=== PATIENT | male | born 1945 | race Caucasian/White ===

== ENCOUNTER → 2018-03-29 09:16 | Outpatient (CLI) | payer BC, SELFPAY ==
[2018-03-29 12:43] LABS: Absolute Lymphocyte Count 1.74 X10^3/ul (0.83-4.51); Absolute Neutrophil Count 5.4 X10^3/uL (2.0-7.7); Basophil# 0.04 X10^3/uL; Basophil% 0.5 % (0-1); Eosinophil# 0.31 X10^3/uL; Eosinophils% 3.8 % (0-5); Hematocrit 42.3 % (40-54); Hemoglobin 14.3 g/dl (13.0-16.5); Lymphocyte # 1.74 X10^3/ul (4.0); Lymphocyte % 21.4 % (19-41); Mean Corp Hgb Conc 33.8 g/gl (32-36); Mean Corpuscular Hgb 26.8 pg (27.0-32.0); Mean Corpuscular Volume 79.2 fL (80-94); Mean Platelet Vol. 12.5 fl (6.2-12.0); Monocyte# 0.64 X10^3/uL; Monocyte% 7.9 % (0-10); Neutrophil # 5.36 X10^3/uL (2.7-7.7); Neutrophil % 65.9 % (47-70); Platelet Count 157 K/mm3 (150-450); RBC Distribution Width SD 43.5 fl (35.1-43.9); Red Blood Count 5.34 M/mm3 (4.6-6.2); White Blood Count 8.1 K/mm3 (4.4-11.0)
[2018-03-29 12:49] LABS: POSITIVE COUNT NO; POSITIVE DIFFERENTIAL NO; POSITIVE MORPHOLOGY NO
[2018-03-29 13:04] LABS: ALB/GLOB Ratio 1.1 RATIO (0.9-2.4); AST(SGOT) 27 U/L (15-37); Alanine Aminotransfer ALT/SGPT 42 U/L (16-61); Albumin, Serum 4.1 g/dL (3.2-5.0); Alkaline Phosphatase 89 U/L (45-117); Anion Gap 7 (5-15); BUN 23 mg/dL (7-18); BUN/Creat Ratio 19.8 RATIO (10-20); Chloride 106 mmol/L (98-107); Creatinine, Serum 1.16 mg/dL (0.70-1.30); EST Glomerular Filtration Rate 66 mL/min (>60); Est Glom Filt Rate - Afr Amer 80 mL/min (>60); Globulin 3.9 g/dL (2.2-4.2); Glucose 100 mg/dL (74-106); Potassium 4.2 mmol/L (3.5-5.1); Sodium Level 135 mmol/L (136-145)
[2018-03-30 09:55] LABS: Vitamin D,25 Hydroxy 49.7 ng/mL (29.95-100.01)
== END ==
PROVIDERS: Family Provider Family Medicine Geriatric Medicine; PCP Family Medicine Geriatric Medicine; Visit Provider Family Medicine Geriatric Medicine
DX: I10 Essential (primary) hypertension (principal); E23.6 Other disorders of pituitary gland; E55.9 Vitamin D deficiency, unspecified
CPT/HCPCS: 36415; 80053; 82306; 84403; 84443; 85025

== ENCOUNTER → 2018-04-04 11:16 | Outpatient (CLI) | payer BC, SELFPAY ==
[2018-04-04 13:31] LABS: T3 Uptake 34 % (33-40); T4 Free Direct 0.84 ng/dL (0.76-1.46)
== END ==
PROVIDERS: Family Provider Family Medicine Geriatric Medicine; PCP Family Medicine Geriatric Medicine; Visit Provider Family Medicine Geriatric Medicine
DX: E03.9 Hypothyroidism, unspecified (principal)
CPT/HCPCS: 36415; 84439; 84479

== ENCOUNTER → 2018-09-27 09:21 | Outpatient (CLI) | payer BC, SELFPAY ==
[2018-09-27 12:43] LABS: Absolute Neutrophil Count 5.5 X10^3/uL (2.0-7.7); Basophil# 0.05 X10^3/uL; Basophil% 0.6 % (0-1); Eosinophil# 0.35 X10^3/uL; Eosinophils% 4.3 % (0-5); Hematocrit 44.3 % (40-54); Hemoglobin 14.8 g/dl (13.0-16.5); Lymphocyte % 20.7 % (19-41); Mean Corp Hgb Conc 33.4 g/gl (32-36); Mean Corpuscular Hgb 27.1 pg (27.0-32.0); Mean Corpuscular Volume 81.1 fL (80-94); Mean Platelet Vol. 11.8 fl (6.2-12.0); Monocyte# 0.57 X10^3/uL; Monocyte% 6.9 % (0-10); Neutrophil # 5.51 X10^3/uL (2.7-7.7); Platelet Count 171 K/mm3 (150-450); RBC Distribution Width CV 15.2 % (11.6-14.6); RBC Distribution Width SD 45.1 fl (35.1-43.9); Red Blood Count 5.46 M/mm3 (4.6-6.2); White Blood Count 8.2 K/mm3 (4.4-11.0)
[2018-09-27 12:46] LABS: POSITIVE COUNT NO; POSITIVE DIFFERENTIAL NO; POSITIVE MORPHOLOGY NO
[2018-09-27 13:07] LABS: AST(SGOT) 30 U/L (15-37); Alanine Aminotransfer ALT/SGPT 42 U/L (16-61); Alkaline Phosphatase 87 U/L (45-117); Anion Gap 9 (5-15); BUN 23 mg/dL (7-18); BUN/Creat Ratio 19.8 RATIO (10-20); Calcium,Total 8.8 mg/dL (8.5-10.1); Chloride 106 mmol/L (98-107); Creatinine, Serum 1.16 mg/dL (0.70-1.30); EST Glomerular Filtration Rate 66 mL/min (>60); Est Glom Filt Rate - Afr Amer 80 mL/min (>60); Globulin 4.1 g/dL (2.2-4.2); Glucose 96 mg/dL (74-106); Potassium 4.5 mmol/L (3.5-5.1); Protein, Total 8.1 g/dL (6.4-8.2); Sodium Level 138 mmol/L (136-145); Thyroid Stim Hormone (TSH) 0.45 uIU/mL (0.358-3.74)
[2018-09-27 13:08] LABS: Vitamin D,25 Hydroxy 39.7 ng/mL (29.95-100.01)
== END ==
PROVIDERS: Family Provider Family Medicine Geriatric Medicine; PCP Family Medicine Geriatric Medicine; Visit Provider Family Medicine Geriatric Medicine
DX: I10 Essential (primary) hypertension (principal); E23.6 Other disorders of pituitary gland; E55.9 Vitamin D deficiency, unspecified
CPT/HCPCS: 36415; 80053; 82306; 84403; 84443; 85025

== ENCOUNTER → 2019-03-28 09:14 | Outpatient (CLI) | payer BC, SELFPAY ==
[2019-03-28 12:19] LABS: Absolute Lymphocyte Count 1.34 X10^3/ul (0.83-4.51); Absolute Neutrophil Count 4.6 X10^3/uL (2.0-7.7); Basophil# 0.02 X10^3/uL; Basophil% 0.3 % (0-1); Hematocrit 40.7 % (40-54); Hemoglobin 13.8 g/dl (13.0-16.5); Lymphocyte # 1.34 X10^3/ul (4.0); Lymphocyte % 20.1 % (19-41); Mean Corp Hgb Conc 33.9 g/gl (32-36); Mean Corpuscular Hgb 26.1 pg (27.0-32.0); Mean Corpuscular Volume 77.1 fL (80-94); Mean Platelet Vol. 11.2 fl (6.2-12.0); Monocyte# 0.51 X10^3/uL; Monocyte% 7.6 % (0-10); Neutrophil # 4.56 X10^3/uL (2.7-7.7); Neutrophil % 68.4 % (47-70); Platelet Count 145 K/mm3 (150-450); RBC Distribution Width CV 15.8 % (11.6-14.6); RBC Distribution Width SD 43.7 fl (35.1-43.9); Red Blood Count 5.28 M/mm3 (4.6-6.2); White Blood Count 6.7 K/mm3 (4.4-11.0)
[2019-03-28 12:32] LABS: POSITIVE COUNT NO; POSITIVE DIFFERENTIAL NO; POSITIVE MORPHOLOGY NO
[2019-03-28 12:35] LABS: Vitamin D,25 Hydroxy 54.4 ng/mL (29.95-100.01)
[2019-03-28 12:42] LABS: ALB/GLOB Ratio 0.9 RATIO (0.9-2.4); AST(SGOT) 30 U/L (15-37); Alanine Aminotransfer ALT/SGPT 43 U/L (16-61); Albumin, Serum 3.8 g/dL (3.2-5.0); Alkaline Phosphatase 97 U/L (45-117); Anion Gap 10 (5-15); BUN 25 mg/dL (7-18); BUN/Creat Ratio 21.2 RATIO (10-20); Calcium,Total 9.2 mg/dL (8.5-10.1); Chloride 105 mmol/L (98-107); Creatinine, Serum 1.18 mg/dL (0.70-1.30); EST Glomerular Filtration Rate 64 mL/min (>60); Est Glom Filt Rate - Afr Amer 78 mL/min (>60); Globulin 4.3 g/dL (2.2-4.2); Glucose 98 mg/dL (74-106); Potassium 4.1 mmol/L (3.5-5.1); Protein, Total 8.1 g/dL (6.4-8.2); Sodium Level 138 mmol/L (136-145); Thyroid Stim Hormone (TSH) 0.41 uIU/mL (0.358-3.74)
== END ==
PROVIDERS: Family Provider Family Medicine Geriatric Medicine; PCP Family Medicine Geriatric Medicine; Visit Provider Family Medicine Geriatric Medicine
DX: I10 Essential (primary) hypertension (principal); E23.6 Other disorders of pituitary gland; E55.9 Vitamin D deficiency, unspecified
CPT/HCPCS: 36415; 80053; 82306; 84403; 84443; 85025

== ENCOUNTER → 2019-10-03 12:00 | Outpatient (CLI) | payer BC, SELFPAY ==
[2019-10-03 12:36] LABS: Absolute Lymphocyte Count 1.73 X10^3/uL (0.83-4.51); Absolute Neutrophil Count 5.4 X10^3/uL (2.0-7.7); Basophil# 0.05 X10^3/uL; Basophil% 0.6 % (0-1); Eosinophil# 0.24 X10^3/uL; Hemoglobin 14.3 g/dL (13.0-16.5); Lymphocyte # 1.73 X10^3/ul (4.0); Lymphocyte % 21.7 % (19-41); Mean Corp Hgb Conc 33.3 g/dL (32-36); Mean Corpuscular Hgb 27.1 pg (27.0-32.0); Mean Corpuscular Volume 81.4 fL (80-94); Mean Platelet Vol. 11.6 fl (6.2-12.0); Monocyte% 6.3 % (0-10); NRBC Flagged by Analyzer 0 % (0-5); Neutrophil # 5.41 X10^3/uL (2.7-7.7); Neutrophil % 67.9 % (47-70); Platelet Count 145 K/mm3 (150-450); RBC Distribution Width CV 14.1 % (11.6-14.6); RBC Distribution Width SD 41.4 fl (35.1-43.9); Red Blood Count 5.28 M/mm3 (4.6-6.2)
[2019-10-03 12:50] LABS: Vitamin D,25 Hydroxy 50.2 ng/mL (29.95-100.01)
[2019-10-03 12:51] LABS: AST(SGOT) 25 U/L (15-37); Alanine Aminotransfer ALT/SGPT 37 U/L (16-61); Albumin, Serum 3.9 g/dL (3.2-5.0); Alkaline Phosphatase 86 U/L (45-117); Anion Gap 7 (5-15); BUN 25 mg/dL (7-18); Calcium,Total 8.9 mg/dL (8.5-10.1); Chloride 107 mmol/L (98-107); Creatinine, Serum 1.25 mg/dL (0.70-1.30); EST Glomerular Filtration Rate 60 mL/min (>60); Est Glom Filt Rate - Afr Amer 73 mL/min (>60); Globulin 4.1 g/dL (2.2-4.2); Glucose 103 mg/dL (74-106); Potassium 4.1 mmol/L (3.5-5.1); Sodium Level 139 mmol/L (136-145); Thyroid Stim Hormone (TSH) 0.53 uIU/mL (0.358-3.74)
== END ==
PROVIDERS: Family Provider Family Medicine Geriatric Medicine; PCP Family Medicine Geriatric Medicine; Visit Provider Family Medicine Geriatric Medicine
DX: I10 Essential (primary) hypertension (principal); E55.9 Vitamin D deficiency, unspecified; E23.6 Other disorders of pituitary gland
CPT/HCPCS: 36415; 80053; 82306; 84403; 84443; 85025

== ENCOUNTER → 2020-04-02 10:41 | Outpatient (CLI) | payer BC, SELFPAY ==
[2020-04-02 12:27] LABS: Absolute Lymphocyte Count 1.81 X10^3/uL (0.83-4.51); Absolute Neutrophil Count 5.3 X10^3/uL (2.0-7.7); Basophil# 0.04 X10^3/uL; Basophil% 0.5 % (0-1); Eosinophil# 0.26 X10^3/uL; Eosinophils% 3.2 % (0-5); Hematocrit 42.7 % (40-54); Hemoglobin 14.4 g/dL (13.0-16.5); Lymphocyte # 1.81 X10^3/ul (4.0); Lymphocyte % 22.3 % (19-41); Mean Corp Hgb Conc 33.7 g/dL (32-36); Mean Corpuscular Hgb 27.7 pg (27.0-32.0); Mean Corpuscular Volume 82.3 fL (80-94); Monocyte# 0.58 X10^3/uL; Monocyte% 7.2 % (0-10); NRBC Flagged by Analyzer 0 % (0-5); Neutrophil # 5.34 X10^3/uL (2.7-7.7); Neutrophil % 65.9 % (47-70); Platelet Count 139 K/mm3 (150-450); RBC Distribution Width CV 14.5 % (11.6-14.6); RBC Distribution Width SD 41.8 fl (35.1-43.9); Red Blood Count 5.19 M/mm3 (4.6-6.2); White Blood Count 8.1 K/mm3 (4.4-11.0)
[2020-04-02 12:43] LABS: Vitamin D,25 Hydroxy 69.1 ng/mL
[2020-04-02 12:58] LABS: AST(SGOT) 27 U/L (15-37); Alanine Aminotransfer ALT/SGPT 46 U/L (16-61); Albumin, Serum 3.9 g/dL (3.2-5.0); Alkaline Phosphatase 94 U/L (45-117); Anion Gap 7 (5-15); BUN 20 mg/dL (7-18); BUN/Creat Ratio 17.1 RATIO (10-20); Chloride 104 mmol/L (98-107); Creatinine, Serum 1.17 mg/dL (0.70-1.30); EST Glomerular Filtration Rate 65 mL/min (>60); Est Glom Filt Rate - Afr Amer 78 mL/min (>60); Globulin 4.1 g/dL (2.2-4.2); Glucose 110 mg/dL (74-106); Potassium 4.1 mmol/L (3.5-5.1); Sodium Level 136 mmol/L (136-145); Thyroid Stim Hormone (TSH) 0.32 uIU/mL (0.358-3.74)
== END ==
PROVIDERS: PCP Family Medicine Geriatric Medicine; Visit Provider Family Medicine Geriatric Medicine
DX: I10 Essential (primary) hypertension (principal); E23.6 Other disorders of pituitary gland; E55.9 Vitamin D deficiency, unspecified
CPT/HCPCS: 36415; 80053; 82306; 84403; 84443; 85025

== ENCOUNTER → 2020-04-07 11:07 | Outpatient (CLI) | payer BC, SELFPAY ==
[2020-04-07 12:42] LABS: T3 Uptake 35 % (33-40); T4 Free Direct 0.89 ng/dL (0.76-1.46)
== END ==
PROVIDERS: PCP Family Medicine Geriatric Medicine; Visit Provider Family Medicine Geriatric Medicine
DX: R68.89 Other general symptoms and signs (principal)
CPT/HCPCS: 36415; 84439; 84479

== ENCOUNTER → 2020-04-08 10:06 | Outpatient (CLI) | payer BC, SELFPAY ==
[2020-04-08 12:41] LABS: T3 Uptake 34 % (33-40); T4 Free Direct 0.92 ng/dL (0.76-1.46)
== END ==
PROVIDERS: PCP Family Medicine Geriatric Medicine; Visit Provider Family Medicine Geriatric Medicine
DX: R68.89 Other general symptoms and signs (principal)
CPT/HCPCS: 36415; 84439; 84479

== ENCOUNTER → 2020-10-06 09:50 | Outpatient (CLI) | payer BC, SELFPAY ==
[2020-10-06 12:13] LABS: Absolute Lymphocyte Count 1.72 X10^3/uL (0.83-4.51); Absolute Neutrophil Count 5.4 X10^3/uL (2.0-7.7); Basophil# 0.04 X10^3/uL; Basophil% 0.5 % (0-1); Eosinophil# 0.25 X10^3/uL; Eosinophils% 3.1 % (0-5); Hematocrit 42.8 % (40-54); Lymphocyte # 1.72 X10^3/ul (4.0); Lymphocyte % 21.6 % (19-41); Mean Corp Hgb Conc 32.7 g/dL (32-36); Mean Corpuscular Hgb 26.4 pg (27.0-32.0); Mean Corpuscular Volume 80.8 fL (80-94); Mean Platelet Vol. 11.7 fl (6.2-12.0); Monocyte# 0.51 X10^3/uL; Monocyte% 6.4 % (0-10); NRBC Flagged by Analyzer 0 % (0-5); Neutrophil # 5.38 X10^3/uL (2.7-7.7); Neutrophil % 67.6 % (47-70); Platelet Count 151 K/mm3 (150-450); RBC Distribution Width CV 14.6 % (11.6-14.6); RBC Distribution Width SD 42.5 fl (35.1-43.9)
[2020-10-06 12:25] LABS: Vitamin D,25 Hydroxy 50.8 ng/mL
[2020-10-06 12:34] LABS: AST(SGOT) 29 U/L (15-37); Alanine Aminotransfer ALT/SGPT 49 U/L (16-61); Albumin, Serum 3.9 g/dL (3.2-5.0); Alkaline Phosphatase 95 U/L (45-117); Anion Gap 8 (5-15); BUN 24 mg/dL (7-18); Chloride 106 mmol/L (98-107); Creatinine, Serum 1.26 mg/dL (0.70-1.30); EST Glomerular Filtration Rate 59 mL/min (>60); Est Glom Filt Rate - Afr Amer 72 mL/min (>60); Glucose 104 mg/dL (74-106); Protein, Total 7.9 g/dL (6.4-8.2); Sodium Level 138 mmol/L (136-145)
== END ==
PROVIDERS: PCP Family Medicine Geriatric Medicine; Visit Provider Family Medicine Geriatric Medicine
DX: I10 Essential (primary) hypertension (principal); E23.6 Other disorders of pituitary gland; E55.9 Vitamin D deficiency, unspecified
CPT/HCPCS: 36415; 80053; 82306; 84403; 84443; 85025

== ENCOUNTER → 2021-04-07 09:04 | Outpatient (CLI) | payer OTHER, SELFPAY ==
--- NOTE | 2021-04-07 10:33 | RAD_ITS ---
STUDY: X-RAY - LEFT ELBOW REASON FOR EXAM: Male, 75 years old. ELBOW PAIN TECHNIQUE: 3 view(s) of the elbow. COMPARISON: None. FINDINGS: Normal visualized humerus, radius and ulna. Normal radiocapitellar and ulnotrochlear articulations. The soft tissue structures are unremarkable. RAD/Elbow min 3 Views IMPRESSION: Normal x-ray examination of the elbow. Electronically Signed: Boo Glaser MD at 15:23 EDT Tel , Service support ,
--- NOTE | 2021-04-07 10:33 | RAD_ITS ---
STUDY: X-RAY - LEFT SHOULDER REASON FOR EXAM: Male, 75 years old. SHOULDER PAIN TECHNIQUE: 4 view(s) of the shoulder. COMPARISON: None. FINDINGS: There is mild degenerative arthrosis of the glenohumeral articulation. Normal acromioclavicular joint. Normal acromion. Normal humeral head and visualized proximal humerus. There is periarticular soft tissue calcification consistent with a calcific tendinitis. Normal visualized pulmonary apex. RAD/Shoulder min 2 Views IMPRESSION: 1. Mild glenohumeral joint arthrosis with small bodies. 2. Hydroxyapatite deposition disease (calcific tendinitis). Electronically Signed: Boo Glaser MD at 15:20 EDT Tel , Service support ,
--- NOTE | 2021-04-07 10:33 | RAD_ITS ---
STUDY: X-RAY - RIGHT SHOULDER REASON FOR EXAM: Male, 75 years old. SHOULDER PAIN TECHNIQUE: 4 view(s) of the shoulder. COMPARISON: None. FINDINGS: Normal glenohumeral articulation. Normal acromioclavicular joint. Normal acromion. Normal humeral head and visualized proximal humerus. There is periarticular soft tissue calcification consistent with a calcific tendinitis. Normal visualized pulmonary apex. RAD/Shoulder min 2 Views IMPRESSION: Hydroxyapatite deposition disease (calcific tendinitis). Electronically Signed: Boo Glaser MD at 15:21 EDT Tel , Service support ,
--- NOTE | 2021-04-07 10:33 | RAD_ITS ---
STUDY: X-RAY - RIGHT ELBOW REASON FOR EXAM: Male, 75 years old. ELBOW PAIN TECHNIQUE: 3 view(s) of the elbow. COMPARISON: None. FINDINGS: Normal visualized humerus, radius and ulna. Normal radiocapitellar and ulnotrochlear articulations. The soft tissue structures are unremarkable. RAD/Elbow min 3 Views IMPRESSION: Normal x-ray examination of the elbow. Electronically Signed: Boo Glaser MD at 15:23 EDT Tel , Service support ,
--- NOTE | 2021-04-07 10:33 | RAD_ITS ---
STUDY: X-RAY - LEFT HAND REASON FOR EXAM: Male, 75 years old. HAND PAIN TECHNIQUE: 3 view(s) of the hand. COMPARISON: None. FINDINGS: Normal radiocarpal articulation. Normal distal radioulnar joint. Normal visualized carpal bones. Normal carpal articulations Normal carpometacarpal articulation of the thumb. Normal second through fifth carpometacarpal joints. Suspect healed boxer''s fracture of the fifth metacarpal bone. Normal metacarpophalangeal joint of the thumb. Normal interphalangeal joint of the thumb. Normal proximal and distal phalanges of the thumb. Normal metacarpophalangeal joints of the second through fifth fingers. Normal proximal and distal interphalangeal joints of the second through fifth fingers. Normal phalanges of the second through fifth fingers. The soft tissue structures are unremarkable. RAD/Hand Min 3 Views IMPRESSION: Normal x-ray examination of the hand. Electronically Signed: Boo Glaser MD at 15:22 EDT Tel , Service support ,
--- NOTE | 2021-04-07 10:33 | RAD_ITS ---
STUDY: X-RAY - RIGHT HAND REASON FOR EXAM: Male, 75 years old. HAND PAIN TECHNIQUE: 3 view(s) of the hand. COMPARISON: None. FINDINGS: Normal radiocarpal articulation. Normal distal radioulnar joint. Normal visualized carpal bones. Normal carpal articulations Normal carpometacarpal articulation of the thumb. Normal second through fifth carpometacarpal joints. Normal metacarpi. Normal metacarpophalangeal joint of the thumb. Normal interphalangeal joint of the thumb. Normal proximal and distal phalanges of the thumb. Normal metacarpophalangeal joints of the second through fifth fingers. Normal proximal and distal interphalangeal joints of the second through fifth fingers. Normal phalanges of the second through fifth fingers. The soft tissue structures are unremarkable. RAD/Hand Min 3 Views IMPRESSION: Normal x-ray examination of the hand. Electronically Signed: Boo Glaser MD at 15:23 EDT Tel , Service support ,
[2021-04-07 12:31] LABS: Absolute Lymphocyte Count 1.43 X10^3/uL (0.83-4.51); Basophil# 0.03 X10^3/uL; Basophil% 0.5 % (0-1); Eosinophil# 0.19 X10^3/uL; Eosinophils% 3.1 % (0-5); Hematocrit 45.1 % (40-54); Hemoglobin 15.1 g/dL (13.0-16.5); Lymphocyte # 1.43 X10^3/ul (0.83-4.51); Lymphocyte % 23.7 % (19-41); Mean Corp Hgb Conc 33.5 g/dL (32-36); Mean Corpuscular Hgb 26.8 pg (27.0-32.0); Mean Corpuscular Volume 80.1 fL (80-94); Mean Platelet Vol. 10.9 fl (6.2-12.0); Monocyte# 0.41 X10^3/uL; Monocyte% 6.8 % (0-10); NRBC Flagged by Analyzer 0 % (0-5); Neutrophil # 3.96 X10^3/uL (2.7-7.7); Neutrophil % 65.6 % (47-70); Platelet Count 147 K/mm3 (150-450); RBC Distribution Width CV 13.7 % (11.6-14.6); RBC Distribution Width SD 39.8 fl (35.1-43.9); Red Blood Count 5.63 M/mm3 (4.6-6.2)
[2021-04-07 12:48] LABS: Vitamin D,25 Hydroxy 47.4 ng/mL
[2021-04-07 12:55] LABS: AST(SGOT) 24 U/L (15-37); Alanine Aminotransfer ALT/SGPT 25 U/L (16-61); Albumin, Serum 3.9 g/dL (3.2-5.0); Alkaline Phosphatase 87 U/L (45-117); Anion Gap 6 (5-15); BUN 23 mg/dL (7-18); Calcium,Total 9.7 mg/dL (8.5-10.1); Chloride 105 mmol/L (98-107); Creatinine, Serum 1.28 mg/dL (0.70-1.30); EST Glomerular Filtration Rate 58 mL/min (>60); Est Glom Filt Rate - Afr Amer 71 mL/min (>60); Glucose 99 mg/dL (74-106); Potassium 4.2 mmol/L (3.5-5.1); Protein, Total 7.9 g/dL (6.4-8.2); Sodium Level 137 mmol/L (136-145); Thyroid Stim Hormone (TSH) 0.48 uIU/mL (0.358-3.74)
== END ==
PROVIDERS: PCP Family Medicine Geriatric Medicine; Referring Provider Family Medicine Geriatric Medicine; Visit Provider Family Medicine Geriatric Medicine
DX: M25.512 Pain in left shoulder (principal); M25.511 Pain in right shoulder; M25.522 Pain in left elbow; M25.521 Pain in right elbow; M79.641 Pain in right hand; M79.642 Pain in left hand; E23.6 Other disorders of pituitary gland; E55.9 Vitamin D deficiency, unspecified; I10 Essential (primary) hypertension
CPT/HCPCS: 36415; 73030; 73080; 73130; 80053; 82306; 84403; 84443; 85025

== ENCOUNTER → 2021-05-19 09:55 | Outpatient (CLI) | payer OTHER, SELFPAY ==
[2021-04-28 09:24] VITALS: BMI 30.7
--- NOTE | 2021-05-19 09:58 | RAD_ITS ---
STUDY: X-RAY - PELVIS REASON FOR EXAM: Male, 75 years old. Pain and stiffness TECHNIQUE: One view of the pelvis was obtained. COMPARISON: None. FINDINGS: There is a non-specific bowel gas pattern. Normal visualized soft tissue structures. There is narrowing with cortical sclerosis and osteophyte formation of the sacroiliac joint consistent with degenerative osteoarthritic changes. Normal visualized bilateral superior and inferior pubic rami. Normal pubic symphysis. Normal ischial tuberosities. Normal visualized right femoral head. Normal right acetabulum. There is mild articular joint space narrowing of the right hip. Normal visualized left femoral head. Normal left acetabulum. There is mild articular joint space narrowing of the left hip. RAD/Pelvis 1 or 2 Views IMPRESSION: Age consistent hip and SI joint arthrosis Electronically Signed: Carmine Scott MD at 10:14 EDT , Service support ,
[2021-05-19 12:19] LABS: Absolute Lymphocyte Count 1.47 X10^3/uL (0.83-4.51); Absolute Neutrophil Count 5.4 X10^3/uL (2.0-7.7); Basophil# 0.03 X10^3/uL; Basophil% 0.4 % (0-1); Eosinophils% 2.6 % (0-5); Hematocrit 45.8 % (40-54); Hemoglobin 15.1 g/dL (13.0-16.5); Lymphocyte # 1.47 X10^3/ul (0.83-4.51); Lymphocyte % 19.4 % (19-41); Mean Corpuscular Volume 81.8 fL (80-94); Mean Platelet Vol. 10.7 fl (6.2-12.0); Monocyte% 6.6 % (0-10); NRBC Flagged by Analyzer 0 % (0-5); Neutrophil # 5.36 X10^3/uL (2.7-7.7); Neutrophil % 70.6 % (47-70); Platelet Count 134 K/mm3 (150-450); RBC Distribution Width CV 14.1 % (11.6-14.6); RBC Distribution Width SD 41.3 fl (35.1-43.9); White Blood Count 7.6 K/mm3 (4.4-11.0)
[2021-05-19 12:39] LABS: AST(SGOT) 24 U/L (15-37); Alanine Aminotransfer ALT/SGPT 34 U/L (16-61); Alkaline Phosphatase 85 U/L (45-117); Anion Gap 7 (5-15); BUN 23 mg/dL (7-18); BUN/Creat Ratio 20.4 RATIO (10-20); Calcium,Total 9.2 mg/dL (8.5-10.1); Chloride 105 mmol/L (98-107); Creatinine, Serum 1.13 mg/dL (0.70-1.30); EST Glomerular Filtration Rate 67 mL/min (>60); Est Glom Filt Rate - Afr Amer 81 mL/min (>60); Globulin 3.9 g/dL (2.2-4.2); Glucose 94 mg/dL (74-106); Potassium 4.3 mmol/L (3.5-5.1); Protein, Total 7.9 g/dL (6.4-8.2); Rheumatoid Factor < 10.0 IU/mL (<15); Sodium Level 138 mmol/L (136-145)
[2021-05-19 15:01] LABS: Hepatitis B Surface Antibody Non-Reactive; Hepatitis B Surface Antigen Non-Reactive (Nonreactive); Hepatitis C Antibody Non-Reactive (Nonreactive)
[2021-05-20 20:17] LABS: ANTINUCLEAR ANTIBODIES DIRECT Negative (Negative)
[2021-05-21 12:49] LABS: CCP IgG Antibodies 1 units (0-19)
== END ==
PROVIDERS: PCP Family Medicine Geriatric Medicine; Referring Provider Internal Medicine Rheumatology; Visit Provider Internal Medicine Rheumatology
DX: M06.4 Inflammatory polyarthropathy (principal); M21.41 Flat foot [pes planus] (acquired), right foot; C92.10 Chronic myeloid leukemia, BCR/ABL-positive, not having achieved remission; I10 Essential (primary) hypertension; E78.5 Hyperlipidemia, unspecified; N40.0 Benign prostatic hyperplasia without lower urinary tract symptoms; N32.81 Overactive bladder; H54.8 Legal blindness, as defined in USA
CPT/HCPCS: 36415; 72170; 80053; 85025; 86038; 86200; 86431; 86706; 86803; 87340

== ENCOUNTER 2021-06-03 07:00 | Outpatient (RCR) | payer OTHER, SELFPAY ==
[2021-04-28 09:24] VITALS: BMI 30.7
--- NOTE | 2021-05-04 07:47 | HP.PTEVAL_ITS ---
Patient's Visit Information HENRY WILKINSON is a 75 year old M referred to Physical Therapy by Dr. Henry Quezada DO with a diagnosis of Bilateral Calcific Tendonitis Bilateral Shoulders. Date of Evaluation: 05/04/21 Physical Therapist: Khadra Meyer DPT - Visit Plan Frequency: 2x /Week Duration: 4 Weeks Plan: Focus on bilateral UE ROM, scapular strength/stabilization, posture and muscular endurance- modality of heat/ice as needed. HEP Given IE: supine cane flexion, standing cane abduction and flexion wall wash - Subjective Patient reports that his shoulders have been bothering him for 4-5 months- insidious onset. Dr. Tobias thinks it maybe due to his chemo medication. 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 Bother shoulders bother him but the left is worse. Pain is located in the top of the joint and radiates to the elbow. Then has stiffness in his hands- but if he works it out when he wakes up its better. No N/T. Describes the shoulder as sharp when he raises overhead but more soreness. Agg: mowing his yard (riding mower- approx 1.5-2 hours), raising over head. Workout on [employer] at home which aggravates it but makes it better at the same time. Left: Worst: 6/10 Best: 1-2/10 Right: Worst: 1/10 Best: 0/10. Right hand dominate. Had x-rays but Dr. Grimes sent him to [facility]- then he had injections in both shoulders which helped and have also decreased the stiffness. No neck pain, blurred vision, dizziness or SAUCEDO. 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 Sleep: not disturbed- but he only sleeps 1-2 hours at a time anyways PMHx/Meds: no changes since updates by Dr. Tobias. Does plan to see Rhumatology. - Objective Posture: FH, RS- increased kyphosis- unable to correct due to tight thoracic- with verbal or tactile cues. Gait: decreased trunk rotation and arm swing. Palpation: not tender to touch in bilateral UE. ROM: AROM: Cervical spine: WFL in all planes, Shoulder: left flexion: 100 degrees, abd: 90 degrees, IR; to belt line, ER: 30 degrees, Right flexion: 140 degrees, abd: 110 degrees, IR: to belt line, ER: 60 degrees- pain with all movements bilateral at end range. Elbow/Wrist/Hand: WFL. AAROM: left flexion: 130 degrees, abd: 110 degrees, Right flexion: 160 degrees, abd: 110 degrees. PROM: left flexion: 160 degrees, abd: 140 degrees Right flexion: 180 degrees, abd: 130 degrees,. Strength: Scap: poor, Shoulder: isometric: 4/5 throughout with discomfort in all directions, Elbow: 4+/5, Wrist: 4+/5, Pulverizer Operator: poor bilateral. Special Test: Impingement: positive, Empty can: positive - Balance/Special Test Scores Quick DASH Score: 27.2725 - Goals Goal 1:: Patient will be I with HEP and progression Goal Time Frame: 4-6 Weeks Goal 2:: Patient will maintain proper posture t/o tx session to demo increased scap s/s. Goal Time Frame: 4-6 Weeks Goal 3:: Patient will demo full AROM without pain Goal Time Frame: 4-6 Weeks Goal 4:: Patient will report no more than 2/10 pain in bilateral shoulder for 1 week Goal Time Frame: 4-6 Weeks - Rehabilitation Potential Physical Therapy Diagnosis: Patient presents with hypomobility- he has decreased pain free ROM, scapular and UE strength/stabilization and muscular endurance leading to poor posture and increased pain with ADL's. Rehabilitation Potential: Fair - Anticipated Interventions Patient/Client Instruction: Educate patient on: Benefits of Fitness Program Therapeutic Exercise to Include: Strength training, Endurance training, Body mechanics, Postural training, Flexibilty training, Neuromotor development, Passive ROM, Active ROM, Dynamic Lumbar Stabilization, Scapular Strength/Stabilization TENS: Yes Cryotherapy (ice pack, ice massage): Yes Thermo therapy (hot pack): Yes Ultrasound (thermal/non thermal): No Thank you for the opportunity to evaluate your patient. For Medicare and Medicare HMO plans, please review the plan of care and approve it. It will need to be FAXED BACK to us at [phone] for Medicare purposes. For Medicare only, by signing this I certify the plan of care. Please let me know if there are questions or concerns regarding this plan of care. Physician Signature: Date:
--- NOTE | 2021-06-03 07:26 | HP.PTDCSUM ---
It has been my pleasure to treat HENRY WILKINSON referred by Dr. Henry Quezada DO, with the diagnosis of Bilateral Shld Calcific Tendonitis for a total of 10 visit(s). Discharge Date: 06/03/21 Please see the following information for a summary of their discharge status. Subjective: Pt. reports no pain currently. He reports having increased soreness after using his riding lawn more or any work out. Pt. reports doing well wtih most of his exercises and reports having increased range of motion. No pain at night. % Improvement: 80 Objective/Function: PT. continues to present with increased thoracic kyphosis. Pt. is able to improve, but not able to fully correct. ROM: B shoulders are about equal throughout. Flexion 145deg increase NW at end range (L slightly), abd 135deg (L slight increase NW)< functional IR L5 (slight increase NW on L side), functional ER C3 bilat NE. MMT: Pt. has 4+/5 throughout, mild increase in symptoms with flexion and abduction motions. pt. reports having some difficulty with getting L UE behind his back with UB dressing and bathing. He has been compliant with his exercises at home and I went over adding these exercises to his boflew machine at home. Pt. consents. Pt. to stretch daily and add in strength x3 days per week. Pt. consents. Goal 1:: Patient will be I with HEP and progression Goal Progress: Goal Met Goal 2:: Patient will maintain proper posture t/o tx session to demo increased scap s/s. Goal Progress: Progressing Goal 3:: Patient will demo full AROM without pain Goal Progress: Progressing Goal 4:: Patient will report no more than 2/10 pain in bilateral shoulder for 1 week Goal Progress: Goal Met Plan: Pt. to be DC to HEP with focus on stretching and strengthening in home setting. Discharge Comments: Pt. did well with PT. with focus on stretching and progressing to strengthening program. He is independent with all of his exercises. I talked to him about continuing to stretch daily, but not forcefully. Pt. consents. He is to add in strengthening exercises x3-4 days per week Pt. consents. He betancourt progressed as expected. He will be DC from PT at this point in time. If there are questions or concerns regarding this patient's physical therapy, please feel free to call me at [phone]. Thank you for the referral of this patient. Sincerely, Peewee Vargas, T[facility] Balance/Gait/Functional tests - Balance/Special Test Scores Quick DASH Score: [phone]
== END 2021-06-03 08:54 | disposition home or self-care (01) ==
LOC: PT 07:00
PROVIDERS: PCP Family Medicine Geriatric Medicine; Referring Provider Orthopaedic Surgery; Visit Provider Orthopaedic Surgery
DX: M65.20 Calcific tendinitis, unspecified site (principal)
CPT/HCPCS: 97110; 97162; 97164

== ENCOUNTER → 2021-09-01 10:55 | Outpatient (CLI) | payer OTHER, SELFPAY ==
[2021-09-01 15:12] LABS: Absolute Lymphocyte Count 1.37 X10^3/uL (0.83-4.51); Absolute Neutrophil Count 3.3 X10^3/uL (2.0-7.7); Basophil# 0.04 X10^3/uL; Basophil% 0.7 % (0-1); Eosinophil# 0.22 X10^3/uL; Eosinophils% 4.1 % (0-5); Hematocrit 42.1 % (40-54); Hemoglobin 14.5 g/dL (13.0-16.5); Lymphocyte # 1.37 X10^3/ul (0.83-4.51); Lymphocyte % 25.4 % (19-41); Mean Corp Hgb Conc 34.4 g/dL (32-36); Mean Corpuscular Hgb 27.4 pg (27.0-32.0); Mean Corpuscular Volume 79.4 fL (80-94); Mean Platelet Vol. 10.9 fl (6.2-12.0); Monocyte# 0.42 X10^3/uL; Monocyte% 7.8 % (0-10); NRBC Flagged by Analyzer 0 % (0-5); Neutrophil # 3.33 X10^3/uL (2.7-7.7); Neutrophil % 61.6 % (47-70); Platelet Count 143 K/mm3 (150-450); RBC Distribution Width CV 13.2 % (11.6-14.6); RBC Distribution Width SD 38.1 fl (35.1-43.9); White Blood Count 5.4 K/mm3 (4.4-11.0)
[2021-09-01 15:25] LABS: ALB/GLOB Ratio 0.9 RATIO (0.9-2.4); AST(SGOT) 26 U/L (15-37); Alanine Aminotransfer ALT/SGPT 27 U/L (16-61); Albumin, Serum 3.7 g/dL (3.2-5.0); Alkaline Phosphatase 83 U/L (45-117); Anion Gap 9 (5-15); BUN 17 mg/dL (7-18); BUN/Creat Ratio 13.8 RATIO (10-20); Calcium,Total 9.4 mg/dL (8.5-10.1); Chloride 103 mmol/L (98-107); Creatinine, Serum 1.23 mg/dL (0.70-1.30); EST Glomerular Filtration Rate 61 mL/min (>60); Est Glom Filt Rate - Afr Amer 74 mL/min (>60); Globulin 3.9 g/dL (2.2-4.2); Glucose 96 mg/dL (74-106); Protein, Total 7.6 g/dL (6.4-8.2); Sodium Level 140 mmol/L (136-145)
== END ==
PROVIDERS: PCP Family Medicine Geriatric Medicine; Referring Provider Internal Medicine Rheumatology; Visit Provider Internal Medicine Rheumatology
DX: M06.4 Inflammatory polyarthropathy (principal); M21.41 Flat foot [pes planus] (acquired), right foot; C92.10 Chronic myeloid leukemia, BCR/ABL-positive, not having achieved remission; I10 Essential (primary) hypertension; E78.5 Hyperlipidemia, unspecified; N40.0 Benign prostatic hyperplasia without lower urinary tract symptoms; N32.81 Overactive bladder; H54.8 Legal blindness, as defined in USA
CPT/HCPCS: 36415; 80053; 85025

== ENCOUNTER → 2021-10-07 09:10 | Outpatient (CLI) | payer OTHER, SELFPAY ==
[2021-10-07 12:49] LABS: Absolute Lymphocyte Count 1.31 X10^3/uL (0.83-4.51); Absolute Neutrophil Count 4.7 X10^3/uL (2.0-7.7); Basophil# 0.04 X10^3/uL; Basophil% 0.6 % (0-1); Eosinophil# 0.15 X10^3/uL; Eosinophils% 2.2 % (0-5); Hematocrit 44.2 % (40-54); Hemoglobin 14.8 g/dL (13.0-16.5); Lymphocyte # 1.31 X10^3/ul (0.83-4.51); Lymphocyte % 19.6 % (19-41); Mean Corp Hgb Conc 33.5 g/dL (32-36); Mean Corpuscular Hgb 26.4 pg (27.0-32.0); Mean Corpuscular Volume 78.9 fL (80-94); Mean Platelet Vol. 10.7 fl (6.2-12.0); Monocyte# 0.44 X10^3/uL; Monocyte% 6.6 % (0-10); NRBC Flagged by Analyzer 0 % (0-5); Neutrophil % 70.6 % (47-70); Platelet Count 163 K/mm3 (150-450); RBC Distribution Width CV 13.5 % (11.6-14.6); RBC Distribution Width SD 38.4 fl (35.1-43.9); White Blood Count 6.7 K/mm3 (4.4-11.0)
[2021-10-07 13:11] LABS: Vitamin D,25 Hydroxy 61.9 ng/mL
[2021-10-07 13:19] LABS: ALB/GLOB Ratio 0.9 RATIO (0.9-2.4); AST(SGOT) 27 U/L (15-37); Alanine Aminotransfer ALT/SGPT 31 U/L (16-61); Albumin, Serum 3.8 g/dL (3.2-5.0); Alkaline Phosphatase 83 U/L (45-117); Anion Gap 6 (5-15); BUN 26 mg/dL (7-18); BUN/Creat Ratio 19.8 RATIO (10-20); Calcium,Total 9.6 mg/dL (8.5-10.1); Chloride 105 mmol/L (98-107); Creatinine, Serum 1.31 mg/dL (0.70-1.30); EST Glomerular Filtration Rate 57 mL/min (>60); Est Glom Filt Rate - Afr Amer 69 mL/min (>60); Globulin 4.2 g/dL (2.2-4.2); Glucose 103 mg/dL (74-106); Potassium 4.2 mmol/L (3.5-5.1); Sodium Level 136 mmol/L (136-145); Thyroid Stim Hormone (TSH) 0.54 uIU/mL (0.358-3.74)
== END ==
PROVIDERS: PCP Family Medicine Geriatric Medicine; Visit Provider Family Medicine Geriatric Medicine
DX: E23.6 Other disorders of pituitary gland (principal); E55.9 Vitamin D deficiency, unspecified; I10 Essential (primary) hypertension
CPT/HCPCS: 36415; 80053; 82306; 84403; 84443; 85025

== ENCOUNTER 2021-11-08 07:27 | Outpatient (CLI) | payer BC, SELFPAY ==
--- NOTE | 2021-11-08 07:30 | US_ITS ---
STUDY: RENAL ULTRASOUND - COMPLETE REASON FOR EXAM: Male, 76 years old. CKD 3 TECHNIQUE: Ultrasound evaluation of the kidneys was performed with real-time and static pace-scale imaging. COMPARISON: None. FINDINGS: RIGHT KIDNEY: Normal location of the right kidney, which is normal in size. The right kidney measures 11.3 cm x 4.4 cm x 4.3 cm. There is a normal cortex of the right kidney. The renal cortex measures 1.6 cm. There is no right renal mass or cyst. There are no right renal calculi. There is no right hydronephrosis. DISTAL RIGHT URETER: There is non-visualization of the distal right ureter. There is no demonstrated right ureterovesical junction calculus. There is no demonstrated right ureteral jet. LEFT KIDNEY: Normal location of the left kidney, which is normal in size. The left kidney measures 12.2 cm x 4.4 cm x 5.6 cm. There is a normal cortex of the left kidney. The renal cortex measures 1.7 cm. There is no left renal mass or cyst. There are no left renal calculi. There is no left hydronephrosis. DISTAL LEFT URETER: There is non-visualization of the distal left ureter. There is no demonstrated left ureterovesical junction calculus. There is no demonstrated left ureteral jet. BLADDER: The distended urinary bladder has a volume of 72 ml. There is a normal wall thickness of the distended urinary bladder. There is no demonstrated mass within the urinary bladder. There are no demonstrated bladder calculi. US/Kidney and Bladder IMPRESSION: Normal ultrasound of the kidneys and urinary bladder. Electronically Signed: Rich Malone MD at 10:01 [facility] ,
== END 2021-11-08 23:59 | disposition short-term general hospital (02) ==
PROVIDERS: PCP Family Medicine Geriatric Medicine; Referring Provider Internal Medicine Nephrology; Visit Provider Internal Medicine Nephrology
DX: N18.31 Chronic kidney disease, stage 3a (principal)
CPT/HCPCS: 76770

== ENCOUNTER 2021-11-24 10:53 | Outpatient (CLI) | payer BC, SELFPAY ==
[2021-11-24 12:38] LABS: Absolute Lymphocyte Count 1.36 X10^3/uL (0.83-4.51); Absolute Neutrophil Count 4.1 X10^3/uL (2.0-7.7); Basophil# 0.04 X10^3/uL; Basophil% 0.7 % (0-1); Eosinophil# 0.18 X10^3/uL; Eosinophils% 2.9 % (0-5); Hematocrit 43.1 % (40-54); Lymphocyte # 1.36 X10^3/ul (0.83-4.51); Lymphocyte % 22.2 % (19-41); Mean Corp Hgb Conc 34.8 g/dL (32-36); Mean Corpuscular Hgb 27.6 pg (27.0-32.0); Mean Corpuscular Volume 79.4 fL (80-94); Mean Platelet Vol. 10.7 fl (6.2-12.0); Monocyte# 0.39 X10^3/uL; Monocyte% 6.4 % (0-10); NRBC Flagged by Analyzer 0 % (0-5); Neutrophil # 4.13 X10^3/uL (2.7-7.7); Neutrophil % 67.3 % (47-70); Platelet Count 148 K/mm3 (150-450); RBC Distribution Width CV 13.8 % (11.6-14.6); RBC Distribution Width SD 39.7 fl (35.1-43.9); Red Blood Count 5.43 M/mm3 (4.6-6.2); White Blood Count 6.1 K/mm3 (4.4-11.0)
[2021-11-24 13:12] LABS: PTHIN 32.1 pg/mL (18.4-80.1)
[2021-11-24 13:17] LABS: AST(SGOT) 26 U/L (15-37); Alanine Aminotransfer ALT/SGPT 28 U/L (16-61); Albumin, Serum 3.7 g/dL (3.2-5.0); Alkaline Phosphatase 82 U/L (45-117); Anion Gap 8 (5-15); BUN 22 mg/dL (7-18); BUN/Creat Ratio 19.8 RATIO (10-20); Calcium,Total 9.2 mg/dL (8.5-10.1); Chloride 107 mmol/L (98-107); Creatinine, Serum 1.11 mg/dL (0.70-1.30); EST Glomerular Filtration Rate 69 mL/min (>60); Est Glom Filt Rate - Afr Amer 83 mL/min (>60); Globulin 3.7 g/dL (2.2-4.2); Glucose 103 mg/dL (74-106); Phosphorus 3.8 mg/dL (2.5-4.9); Protein, Total 7.4 g/dL (6.4-8.2); Sodium Level 139 mmol/L (136-145)
== END 2021-11-24 23:59 | disposition home or self-care (01) ==
LOC: MTLAB 10:54
PROVIDERS: PCP Family Medicine Geriatric Medicine; Referring Provider Internal Medicine Nephrology; Visit Provider Internal Medicine Nephrology
DX: N18.31 Chronic kidney disease, stage 3a (principal)
CPT/HCPCS: 36415; 80053; 83970; 84100; 85025

== ENCOUNTER → 2022-04-07 | Outpatient (CLI) | payer BC, SELFPAY ==
[2022-04-07 11:38] LABS: Absolute Lymphocyte Count 0.93 X10^3/uL (0.83-4.51); Absolute Neutrophil Count 4.2 X10^3/uL (2.0-7.7); Basophil# 0.04 X10^3/uL; Basophil% 0.7 % (0-1); Eosinophils% 1.8 % (0-5); Hematocrit 42.5 % (40-54); Hemoglobin 14.6 g/dL (13.0-16.5); Lymphocyte # 0.93 X10^3/ul (0.83-4.51); Lymphocyte % 16.6 % (19-41); Mean Corp Hgb Conc 34.4 g/dL (32-36); Mean Corpuscular Hgb 27.4 pg (27.0-32.0); Mean Corpuscular Volume 79.9 fL (80-94); Mean Platelet Vol. 10.2 fl (6.2-12.0); Monocyte# 0.36 X10^3/uL; Monocyte% 6.4 % (0-10); NRBC Flagged by Analyzer 0 % (0-5); Neutrophil # 4.15 X10^3/uL (2.7-7.7); Platelet Count 144 K/mm3 (150-450); RBC Distribution Width CV 13.3 % (11.6-14.6); RBC Distribution Width SD 38.4 fl (35.1-43.9); Red Blood Count 5.32 M/mm3 (4.6-6.2); White Blood Count 5.6 K/mm3 (4.4-11.0)
[2022-04-07 11:45] LABS: Vitamin D,25 Hydroxy 52.1 ng/mL
[2022-04-07 11:51] LABS: ALB/GLOB Ratio 1.1 RATIO (0.9-2.4); AST(SGOT) 24 U/L (15-37); Alanine Aminotransfer ALT/SGPT 26 U/L (16-61); Albumin, Serum 3.9 g/dL (3.2-5.0); Alkaline Phosphatase 81 U/L (45-117); Anion Gap 7 (5-15); BUN 20 mg/dL (7-18); BUN/Creat Ratio 15.9 RATIO (10-20); Calcium,Total 9.5 mg/dL (8.5-10.1); Chloride 104 mmol/L (98-107); Creatinine, Serum 1.26 mg/dL (0.70-1.30); EST Glomerular Filtration Rate 59 mL/min (>60); Est Glom Filt Rate - Afr Amer 72 mL/min (>60); Globulin 3.7 g/dL (2.2-4.2); Glucose 102 mg/dL (74-106); Potassium 4.2 mmol/L (3.5-5.1); Protein, Total 7.6 g/dL (6.4-8.2); Sodium Level 137 mmol/L (136-145); Thyroid Stim Hormone (TSH) 0.38 uIU/mL (0.358-3.74)
== END | disposition home or self-care (01) ==
LOC: POLAB3 10:52
PROVIDERS: PCP Family Medicine Geriatric Medicine; Visit Provider Family Medicine Geriatric Medicine
DX: I10 Essential (primary) hypertension (principal); E23.6 Other disorders of pituitary gland; E55.9 Vitamin D deficiency, unspecified
CPT/HCPCS: 36415; 80053; 82306; 84403; 84443; 85025

== ENCOUNTER → 2022-05-25 | Outpatient (CLI) | payer BC, SELFPAY ==
[2022-05-25 12:42] LABS: Absolute Lymphocyte Count 1.21 X10^3/uL (0.83-4.51); Absolute Neutrophil Count 3.6 X10^3/uL (2.0-7.7); Basophil# 0.03 X10^3/uL; Basophil% 0.5 % (0-1); Eosinophil# 0.16 X10^3/uL; Eosinophils% 2.8 % (0-5); Hematocrit 41.4 % (40-54); Lymphocyte # 1.21 X10^3/ul (0.83-4.51); Lymphocyte % 21.3 % (19-41); Mean Corp Hgb Conc 33.8 g/dL (32-36); Mean Corpuscular Hgb 26.9 pg (27.0-32.0); Mean Corpuscular Volume 79.5 fL (80-94); Mean Platelet Vol. 10.7 fl (6.2-12.0); Monocyte# 0.65 X10^3/uL; Monocyte% 11.4 % (0-10); NRBC Flagged by Analyzer 0 % (0-5); Neutrophil % 63.3 % (47-70); Platelet Count 150 K/mm3 (150-450); RBC Distribution Width CV 13.5 % (11.6-14.6); RBC Distribution Width SD 38.8 fl (35.1-43.9); Red Blood Count 5.21 M/mm3 (4.6-6.2); White Blood Count 5.7 K/mm3 (4.4-11.0)
[2022-05-25 13:17] LABS: AST(SGOT) 30 U/L (15-37); Alanine Aminotransfer ALT/SGPT 54 U/L (16-61); Albumin, Serum 3.7 g/dL (3.2-5.0); Alkaline Phosphatase 76 U/L (45-117); Anion Gap 5 (5-15); BUN 12 mg/dL (7-18); BUN/Creat Ratio 11.1 RATIO (10-20); Calcium,Total 8.9 mg/dL (8.5-10.1); Chloride 100 mmol/L (98-107); Creatinine, Serum 1.08 mg/dL (0.70-1.30); EST Glomerular Filtration Rate 71 mL/min (>60); Est Glom Filt Rate - Afr Amer 86 mL/min (>60); Globulin 3.6 g/dL (2.2-4.2); Glucose 103 mg/dL (74-106); Protein, Total 7.3 g/dL (6.4-8.2); Sodium Level 132 mmol/L (136-145)
== END | disposition home or self-care (01) ==
PROVIDERS: PCP Family Medicine Geriatric Medicine; Referring Provider Internal Medicine Rheumatology; Visit Provider Internal Medicine Rheumatology
DX: M06.4 Inflammatory polyarthropathy (principal); C92.10 Chronic myeloid leukemia, BCR/ABL-positive, not having achieved remission; M21.41 Flat foot [pes planus] (acquired), right foot; I10 Essential (primary) hypertension; E78.5 Hyperlipidemia, unspecified; N40.0 Benign prostatic hyperplasia without lower urinary tract symptoms; N32.81 Overactive bladder; H54.8 Legal blindness, as defined in USA; Z79.899 Other long term (current) drug therapy
CPT/HCPCS: 36415; 80053; 85025

== ENCOUNTER → 2022-05-27 | Outpatient (CLI) | payer BC, SELFPAY | END | disposition home or self-care (01) | LOC: PSN 08:30 | PROVIDERS: PCP Family Medicine Geriatric Medicine; Referring Provider Family Medicine Geriatric Medicine; Visit Provider Family Medicine Geriatric Medicine | DX: R68.83 Chills (without fever) (principal); Z20.822 Contact with and (suspected) exposure to COVID-19 | CPT/HCPCS: 87635; 87804; 87807; C9803; U0003; U0005 ==

== ENCOUNTER → 2022-06-22 | Outpatient (CLI) | payer BC, SELFPAY | END | disposition home or self-care (01) | LOC: POLAB3 15:56 → LABSPEC 15:56 | PROVIDERS: PCP Family Medicine Geriatric Medicine; Visit Provider Family Medicine Geriatric Medicine | DX: N39.0 Urinary tract infection, site not specified (principal) | CPT/HCPCS: 87086 ==

== ENCOUNTER → 2022-07-12 | Outpatient (CLI) | payer BC, SELFPAY ==
[2022-07-12 11:23] LABS: PSA,Total - Annual Screen 2.99 ng/mL (0.00-4.00)
== END | disposition home or self-care (01) ==
LOC: LAB 10:36
PROVIDERS: PCP Family Medicine Geriatric Medicine; Referring Provider Registered Nurse; Visit Provider Registered Nurse
DX: Z12.5 Encounter for screening for malignant neoplasm of prostate (principal)
CPT/HCPCS: 36415; 84153; G0103

== ENCOUNTER → 2022-10-20 | Outpatient (CLI) | payer BC, SELFPAY ==
[2022-10-20 10:41] LABS: Absolute Lymphocyte Count 1.59 X10^3/uL (0.83-4.51); Absolute Neutrophil Count 3.3 X10^3/uL (2.0-7.7); Basophil# 0.03 X10^3/uL; Basophil% 0.5 % (0-1); Eosinophil# 0.17 X10^3/uL; Eosinophils% 3.1 % (0-5); Hematocrit 42.2 % (40-54); Hemoglobin 14.8 g/dL (13.0-16.5); Lymphocyte # 1.59 X10^3/ul (0.83-4.51); Mean Corp Hgb Conc 35.1 g/dL (32-36); Mean Corpuscular Hgb 28.1 pg (27.0-32.0); Mean Corpuscular Volume 80.1 fL (80-94); Mean Platelet Vol. 9.9 fl (6.2-12.0); Monocyte# 0.35 X10^3/uL; Monocyte% 6.4 % (0-10); NRBC Flagged by Analyzer 0 % (0-5); Neutrophil # 3.33 X10^3/uL (2.7-7.7); Neutrophil % 60.6 % (47-70); Platelet Count 147 K/mm3 (150-450); RBC Distribution Width CV 13.2 % (11.6-14.6); RBC Distribution Width SD 37.7 fl (35.1-43.9); Red Blood Count 5.27 M/mm3 (4.6-6.2); White Blood Count 5.5 K/mm3 (4.4-11.0)
[2022-10-20 11:31] LABS: Vitamin D,25 Hydroxy 39.7 ng/mL
[2022-10-20 11:41] LABS: ALB/GLOB Ratio 1.1 RATIO (0.9-2.4); AST(SGOT) 26 U/L (15-37); Alanine Aminotransfer ALT/SGPT 32 U/L (16-61); Alkaline Phosphatase 77 U/L (45-117); Anion Gap 5 (5-15); BUN 20 mg/dL (7-18); Calcium,Total 9.2 mg/dL (8.5-10.1); Chloride 106 mmol/L (98-107); Creatinine, Serum 1.25 mg/dL (0.70-1.30); EST Glomerular Filtration Rate 60 mL/min (>60); Est Glom Filt Rate - Afr Amer 72 mL/min (>60); Globulin 3.7 g/dL (2.2-4.2); Glucose 102 mg/dL (74-106); Potassium 3.9 mmol/L (3.5-5.1); Protein, Total 7.7 g/dL (6.4-8.2); Sodium Level 137 mmol/L (136-145); Thyroid Stim Hormone (TSH) 0.66 uIU/mL (0.358-3.74)
== END | disposition home or self-care (01) ==
LOC: POLAB3 09:13
PROVIDERS: PCP Family Medicine Geriatric Medicine; Visit Provider Family Medicine Geriatric Medicine
DX: I10 Essential (primary) hypertension (principal); E55.9 Vitamin D deficiency, unspecified
CPT/HCPCS: 36415; 80053; 82306; 84443; 85025

== ENCOUNTER → 2022-11-16 | Outpatient (CLI) | payer BC, SELFPAY ==
[2022-11-16 12:18] LABS: Absolute Lymphocyte Count 1.78 X10^3/uL (0.83-4.51); Absolute Neutrophil Count 3.5 X10^3/uL (2.0-7.7); Basophil# 0.03 X10^3/uL; Basophil% 0.5 % (0-1); Eosinophil# 0.22 X10^3/uL; Eosinophils% 3.6 % (0-5); Hematocrit 43.1 % (40-54); Hemoglobin 14.5 g/dL (13.0-16.5); Lymphocyte # 1.78 X10^3/ul (0.83-4.51); Lymphocyte % 29.5 % (19-41); Mean Corp Hgb Conc 33.6 g/dL (32-36); Mean Corpuscular Hgb 27.5 pg (27.0-32.0); Mean Corpuscular Volume 81.6 fL (80-94); Mean Platelet Vol. 9.9 fl (6.2-12.0); Monocyte# 0.41 X10^3/uL; Monocyte% 6.8 % (0-10); NRBC Flagged by Analyzer 0 % (0-5); Neutrophil # 3.54 X10^3/uL (2.7-7.7); Neutrophil % 58.6 % (47-70); Platelet Count 152 K/mm3 (150-450); RBC Distribution Width CV 13.1 % (11.6-14.6); RBC Distribution Width SD 38.9 fl (35.1-43.9); Red Blood Count 5.28 M/mm3 (4.6-6.2)
[2022-11-16 12:53] LABS: ALB/GLOB Ratio 1.1 RATIO (0.9-2.4); AST(SGOT) 31 U/L (15-37); Alanine Aminotransfer ALT/SGPT 36 U/L (16-61); Albumin, Serum 3.9 g/dL (3.2-5.0); Alkaline Phosphatase 72 U/L (45-117); Anion Gap 7 (5-15); BUN 18 mg/dL (7-18); BUN/Creat Ratio 14.1 RATIO (10-20); Calcium,Total 9.3 mg/dL (8.5-10.1); Chloride 103 mmol/L (98-107); Creatinine, Serum 1.28 mg/dL (0.70-1.30); EST Glomerular Filtration Rate 58 mL/min (>60); Est Glom Filt Rate - Afr Amer 70 mL/min (>60); Globulin 3.7 g/dL (2.2-4.2); Glucose 102 mg/dL (74-106); Potassium 3.8 mmol/L (3.5-5.1); Protein, Total 7.6 g/dL (6.4-8.2); Sodium Level 137 mmol/L (136-145)
== END | disposition home or self-care (01) ==
LOC: MTLAB 10:43
PROVIDERS: PCP Family Medicine Geriatric Medicine; Referring Provider Internal Medicine Rheumatology; Visit Provider Internal Medicine Rheumatology
DX: M06.4 Inflammatory polyarthropathy (principal); C92.10 Chronic myeloid leukemia, BCR/ABL-positive, not having achieved remission; I10 Essential (primary) hypertension; E78.5 Hyperlipidemia, unspecified; Z79.899 Other long term (current) drug therapy
CPT/HCPCS: 36415; 80053; 85025

== ENCOUNTER → 2023-04-20 | Outpatient (CLI) | payer BC, SELFPAY ==
[2023-04-20 12:03] LABS: Absolute Lymphocyte Count 1.53 X10^3/uL (0.83-4.51); Absolute Neutrophil Count 3.6 X10^3/uL (2.0-7.7); Basophil# 0.04 X10^3/uL; Basophil% 0.7 % (0-1); Eosinophil# 0.16 X10^3/uL; Eosinophils% 2.8 % (0-5); Hemoglobin 14.3 g/dL (13.0-16.5); Lymphocyte # 1.53 X10^3/ul (0.83-4.51); Lymphocyte % 26.6 % (19-41); Mean Corp Hgb Conc 33.3 g/dL (32-36); Mean Corpuscular Hgb 27.3 pg (27.0-32.0); Mean Corpuscular Volume 82.1 fL (80-94); Mean Platelet Vol. 11.1 fl (6.2-12.0); Monocyte# 0.34 X10^3/uL; Monocyte% 5.9 % (0-10); NRBC Flagged by Analyzer 0 % (0-5); Neutrophil # 3.64 X10^3/uL (2.7-7.7); Neutrophil % 63.3 % (47-70); Platelet Count 142 K/mm3 (150-450); RBC Distribution Width CV 13.7 % (11.6-14.6); RBC Distribution Width SD 40.3 fl (35.1-43.9); Red Blood Count 5.24 M/mm3 (4.6-6.2); White Blood Count 5.8 K/mm3 (4.4-11.0)
[2023-04-20 12:24] LABS: Vitamin D,25 Hydroxy 54.9 ng/mL
[2023-04-20 12:37] LABS: AST(SGOT) 28 U/L (15-37); Alanine Aminotransfer ALT/SGPT 28 U/L (16-61); Albumin, Serum 3.9 g/dL (3.2-5.0); Alkaline Phosphatase 76 U/L (45-117); Anion Gap 9 (5-15); BUN 16 mg/dL (7-18); BUN/Creat Ratio 13.2 RATIO (10-20); Calcium,Total 9.1 mg/dL (8.5-10.1); Chloride 104 mmol/L (98-107); Creatinine, Serum 1.21 mg/dL (0.70-1.30); EST Glomerular Filtration Rate 62 mL/min (>60); Est Glom Filt Rate - Afr Amer 75 mL/min (>60); Globulin 3.8 g/dL (2.2-4.2); Glucose 103 mg/dL (74-106); Protein, Total 7.7 g/dL (6.4-8.2); Sodium Level 138 mmol/L (136-145)
== END | disposition home or self-care (01) ==
LOC: POLAB3 09:22
PROVIDERS: PCP Family Medicine Geriatric Medicine; Visit Provider Family Medicine Geriatric Medicine
DX: I10 Essential (primary) hypertension (principal); E55.9 Vitamin D deficiency, unspecified
CPT/HCPCS: 36415; 80053; 82306; 84443; 85025

== ENCOUNTER → 2023-04-26 | Outpatient (CLI) | payer BC, SELFPAY ==
[2023-04-26 12:39] LABS: Absolute Lymphocyte Count 1.29 X10^3/uL (0.83-4.51); Absolute Neutrophil Count 2.7 X10^3/uL (2.0-7.7); Basophil# 0.02 X10^3/uL; Basophil% 0.4 % (0-1); Eosinophil# 0.17 X10^3/uL; Eosinophils% 3.7 % (0-5); Hematocrit 42.3 % (40-54); Hemoglobin 14.1 g/dL (13.0-16.5); Lymphocyte # 1.29 X10^3/ul (0.83-4.51); Lymphocyte % 28.4 % (19-41); Mean Corp Hgb Conc 33.3 g/dL (32-36); Mean Corpuscular Hgb 27.2 pg (27.0-32.0); Mean Corpuscular Volume 81.5 fL (80-94); Mean Platelet Vol. 10.7 fl (6.2-12.0); Monocyte% 6.6 % (0-10); NRBC Flagged by Analyzer 0 % (0-5); Neutrophil # 2.74 X10^3/uL (2.7-7.7); Neutrophil % 60.5 % (47-70); Platelet Count 131 K/mm3 (150-450); RBC Distribution Width CV 13.5 % (11.6-14.6); RBC Distribution Width SD 39.2 fl (35.1-43.9); Red Blood Count 5.19 M/mm3 (4.6-6.2); White Blood Count 4.5 K/mm3 (4.4-11.0)
[2023-04-26 13:09] LABS: AST(SGOT) 22 U/L (15-37); Alanine Aminotransfer ALT/SGPT 26 U/L (16-61); Albumin, Serum 3.7 g/dL (3.2-5.0); Alkaline Phosphatase 73 U/L (45-117); Anion Gap 7 (5-15); BUN 16 mg/dL (7-18); BUN/Creat Ratio 13.1 RATIO (10-20); Calcium,Total 9.1 mg/dL (8.5-10.1); Chloride 104 mmol/L (98-107); Creatinine, Serum 1.22 mg/dL (0.70-1.30); EST Glomerular Filtration Rate 61 mL/min (>60); Est Glom Filt Rate - Afr Amer 74 mL/min (>60); Globulin 3.7 g/dL (2.2-4.2); Glucose 102 mg/dL (74-106); Potassium 4.2 mmol/L (3.5-5.1); Protein, Total 7.4 g/dL (6.4-8.2); Sodium Level 136 mmol/L (136-145)
== END | disposition home or self-care (01) ==
LOC: MTLAB 10:09
PROVIDERS: PCP Family Medicine Geriatric Medicine; Referring Provider Internal Medicine Rheumatology; Visit Provider Internal Medicine Rheumatology
DX: M06.4 Inflammatory polyarthropathy (principal); Z79.899 Other long term (current) drug therapy
CPT/HCPCS: 36415; 80053; 85025

== ENCOUNTER → 2023-06-14 | Outpatient (CLI) | payer BC, SELFPAY ==
--- NOTE | 2023-06-14 16:36 | RAD_ITS ---
STUDY: X-RAY - LEFT FOOT CLINICAL: Male, 78 years old. OSTEOARTHRITIS TECHNIQUE: 3 view(s) of the foot. COMPARISON: None. FINDINGS: Plantar calcaneal spur. Otherwise normal tolerance, calcaneus, and tarsal bones. Normal visualized subtalar, talonavicular, calcaneocuboid, tarsal and tarsometatarsal articulations. Normal metatarsi. There is degenerative arthrosis of the metatarsophalangeal joint of the hallux . Normal tibial and fibular sesamoid bones. Mild narrowing of the interphalangeal joint of the great toe. Normal phalanges of the great toe. Normal second through fifth metatarsophalangeal joints. Narrowing of the distal interphalangeal joints otherwise normal phalanges of the lesser toes. Vascular calcifications consistent with peripheral arterial disease. Mild soft tissue swelling through the distal calf and ankle. There is no demonstrated fracture. RAD/Foot min 3 Views IMPRESSION: Osteoarthritis as described. No acute fracture or subluxation. Peripheral arterial disease. Electronically Signed: Cait Dick MD at 17:12 EDT ,
--- NOTE | 2023-06-14 16:36 | RAD_ITS ---
STUDY: X-RAY - RIGHT FOOT CLINICAL: Male, 78 years old. OSTEOARTHRITIS TECHNIQUE: 3 view(s) of the foot. COMPARISON: None. FINDINGS: Plantar calcaneal spur, otherwise normal talus, calcaneus, and tarsal bones. Normal visualized subtalar, talonavicular, calcaneocuboid, tarsal and tarsometatarsal articulations. Normal metatarsi. There is severe degenerative arthrosis of the metatarsophalangeal joint of the hallux . Normal tibial and fibular sesamoid bones. Normal interphalangeal joint of the great toe. Normal phalanges of the great toe. Normal second through fifth metatarsophalangeal joints. Mild narrowing of the distal interphalangeal joints otherwise normal phalanges of the lesser toes. Vascular calcifications consistent with peripheral arterial disease. Mild soft tissue swelling through the distal calf and ankle. There is no demonstrated fracture. RAD/Foot min 3 Views IMPRESSION: Degenerative disease/posterior arthritis, more severe at the first metatarsophalangeal joint. No acute fracture or subluxation. Peripheral arterial disease. Electronically Signed: Cait Dick MD at 17:13 EDT ,
== END | disposition home or self-care (01) ==
LOC: RAD 16:28
PROVIDERS: PCP Family Medicine Geriatric Medicine; Referring Provider Family Medicine Geriatric Medicine; Visit Provider Family Medicine Geriatric Medicine
DX: M19.071 Primary osteoarthritis, right ankle and foot (principal); M19.072 Primary osteoarthritis, left ankle and foot
CPT/HCPCS: 73630

== ENCOUNTER → 2023-10-04 | Outpatient (CLI) | payer BC, SELFPAY ==
--- NOTE | 2023-10-04 09:46 | ART_ITS ---
Reason For Study: PVD Procedure A bilateral lower extremity continuous wave Doppler with analog waveform analysis and ankle brachial indexes. Left Segmental Pressures Left brachial= 158mmHg. Left posterior tibial artery = >254mmHg. Left dorsalis pedis artery = >254mmHg. Left digit = 39 mmHg. The left dorsalis pedis waveforms are biphasic. The left posterior tibial artery waveforms are biphasic. Right Segmental Pressures Right brachial= 155mmHg. Right posterior tibial artery = >254mmHg. Right dorsalis pedis artery = 254mmHg. Right digit = 61 mmHg. The right dorsalis pedis waveforms are biphasic. The right posterior tibial artery waveforms are biphasic. Indices The right ankle brachial index by the dorsalis pedis is NC. The right ankle brachial index by the posterior tibial artery is NC. The right digital-brachial index is 0.39. The left ankle brachial index by the dorsalis pedis is NC. The left ankle brachial index by the posterior tibial artery is NC. The left digital-brachial index is 0.25. VL/Ankle Brachial Index Interpretation Summary Right SUMAN not able to be calculated due to non-compressible vessels. Doppler/PV R waveforms of the right ankle mildly diminished at rest. TBI diminished consistent with presence of disease. Left SUMAN not able to be calculated due to non-compressible vessels. Doppler/PVR waveforms of the left ankle mildly diminished at rest. TBI diminished consistent with presence o f disease. Ordering Physician: Carlos Grimes Chi Referring Physician: Carlos Grimes Chi Performed By: Tamia Roper RVT
== END | disposition home or self-care (01) ==
PROVIDERS: PCP Family Medicine Geriatric Medicine; Referring Provider Family Medicine Geriatric Medicine; Visit Provider Family Medicine Geriatric Medicine
DX: I73.9 Peripheral vascular disease, unspecified (principal)
CPT/HCPCS: 93922

== ENCOUNTER → 2023-10-16 | Outpatient (CLI) | payer BC, SELFPAY ==
--- OUTSIDE RECORDS SUMMARY | 2023-10-16 11:30 | XMS RPT_ITS | CCD ---
Author Name Unknown Address [address] [place] [address] Organization [facility] Care Team Providers Care Package Designer Name Role Phone Brianna, Shant Chi Primary Care Provider [phone] CHRISTIAN DIETRICH Referring Unavailable BRIANNA, SHANT CHI Primary Care Unavailable CHEY POWER Attending Unavailable SAI CARO Referring Unavailable BRIANNA, SHANT CHI Primary Care Unavailable BRIANNA, SHANT CHI Primary Care Unavailable BRIANNA, SHANT CHI Primary Care Unavailable CHRISTIAN DIETRICH Attending Unavailable CHEY POWER Referring Unavailable BRIANNA, SHANT CHI Primary Care Unavailable CHRISTIAN DIETRICH Referring Unavailable BRIANNA, SHANT CHI Primary Care Unavailable Medications Current Medications Medication Drug Class(es) Dates Sig (Normalized) Sig (Original) amoxicillin 875 mg / clavulanate 125 mg oral tablet (2 sources) Penicillin-class Antibacterial Start: 05-17-2022 End: 05-22-2022 take 1 tablet by mouth twice daily amoxicillin-clav ulanic acid (AUGMENTIN) 875-125 mg per tablet Take 1 tablet by mouth twice daily for 5 days. 10 tablet 0 05/17/2022 05/22/2022 Active Completed/Discontinued Medications Medication Drug Class(es) Dates Sig (Normalized) Sig (Original) aspirin 81 mg delayed release oral tablet (7 sources) Platelet Aggregation Inhibitor, Nonsteroidal Anti-inflammatory Drug Start: 12-07-2012 take 1 tablet by mouth once daily aspirin, enteric coated (ASPIR-81) 81 mg EC tablet Take 1 tablet by mouth once daily. 100 tablet 0 12/07/2012 Active Problems Problem Classification Problem Date Documented Da te Episodic/Chronic Leukemias (13 sources) Chronic myeloid leukemia in remission; Translations: [Chronic myeloid leukemia, BCR/ABL-positive, in remission] Onset: 09-27-2012 Chronic Other upper respiratory infections (2 sources) Acute pansinusitis; Translations: [Acute pansinusitis, unspecified] Episodic Unclassified (1 source) OV Onset: 03-10-2023 Results Test Name Value Interpretation Reference Range Facil ity Vital Signs Date Time Vital Sign Value Performing Clinician María baugh 09-08-2023 10:24-0500 Body height 177.8 cm Christian Dietrich MD Work Phone: [facility] 09-08-2023 10:24-0500 Body temperature 97.11 [degF] Christian Dietrich MD Work Phone: [facility] 09-08-2023 10:24-0500 Body weight 100.25 kg Christian Dietrich MD Work Phone: [facility] 09-08-2023 10:24-0500 Diastolic blood pressure 80 mm[Hg] Christian Dietrich MD Work Phone: [facility] 09-08-2023 10:24-0500 Heart rate 66 /min Christian Dietrich MD Work Phone: [facility] 09-08-2023 10:24-0500 SaO2% (BldA) [Mass fraction] 95 % Christian Dietrich MD Work Phone: [facility] 09-08-2023 10:24-0500 Systolic blood pressure 145 mm[Hg] Christian Dietrich MD Work Phone: [facility] 03-10-2023 08:46-0400 Body temperature 97.81 [degF] Chey Power PUPPY TRAINER.TOP LIFT TRIMMER Work Phone: [facility] 03-10-2023 08:46-0400 Body weight 100.25 kg Chey Power PUPPY TRAINER.TOP LIFT TRIMMER Work Phone: [facility] 03-10-2023 08:46-0400 Diastolic blood pressure 56 mm[Hg] Chey Power PUPPY TRAINER.TOP LIFT TRIMMER Work Phone: [facility] 03-10-2023 08:46-0400 Heart rate 66 /min Chey Power PUPPY TRAINER.TOP LIFT TRIMMER Work Phone: [facility] 03-10-2023 08:46-0400 SaO2% (BldA) [Mass fraction] 97 % Chey Power PUPPY TRAINER.TOP LIFT TRIMMER Work Phone: [facility] 03-10-2023 08:46-0400 Systolic blood pressure 129 mm[Hg] Chey Power PUPPY TRAINER.TOP LIFT TRIMMER Work Phone: [facility] 09-09-2022 09:21-0500 Body temperature 97.59 [degF] Sai Caro MD Work Phone: [facility] 09-09-2022 09:21-0500 Body weight 98.43 kg Sai Caro MD Work Phone: [facility] 09-09-2022 09:21-0500 Diastolic blood pressure 66 mm[Hg] Sai Caro MD Work Phone: [facility] 09-09-2022 09:21-0500 Heart rate 62 /min Sai Caro MD Work Phone: [facility] 09-09-2022 09:21-0500 Systolic blood pressure 139 mm[Hg] Sai Caro MD Work Phone: [facility] 05-20-2022 17:58-0400 Body temperature 99.3 [degF] Corrina Denbow PA-C Work Phone: [facility] 05-20-2022 17:58-0400 Body weight 98.43 kg Corrina Denbow PA-C Work Phone: [facility] 05-20-2022 17:58-0400 Diastolic blood pressure 78 mm[Hg] Corrina Denbow PA-C Work Phone: [facility] 05-20-2022 17:58-0400 Heart rate 67 /min Corrina Denbow PA-C Work Phone: [facility] 05-20-2022 17:58-0400 Respiratory rate 18 /min Corrina Denbow PA-C Work Phone: [facility] 05-20-2022 17:58-0400 SaO2% (BldA) [Mass fraction] 97 % Corrina Denbow PA-C Work Phone: [facility] 05-20-2022 17:58-0400 Systolic blood pressure 142 mm[Hg] Corrina Centeno PA-C Work Phone: [facility] 05-17-2022 18:14-0400 Body temperature 97.9 [degF] Madison Oral PUPPY TRAINER.TOP LIFT TRIMMER Work Phone: [facility] 05-17-2022 18:14-0400 Body weight 98.7 kg Madison Oral PUPPY TRAINER.TOP LIFT TRIMMER Work Phone: [facility] 05-17-2022 18:14-0400 Diastolic blood pressure 84 mm[Hg] Madison Oral PUPPY TRAINER.TOP LIFT TRIMMER Work Phone: [facility] 05-17-2022 18:14-0400 Heart rate 66 /min Madison Oral PUPPY TRAINER.TOP LIFT TRIMMER Work Phone: [facility] 05-17-2022 18:14-0400 Respiratory rate 20 /min Madison Oral PUPPY TRAINER.TOP LIFT TRIMMER Work Phone: [facility] 05-17-2022 18:14-0400 SaO2% (BldA) [Mass fraction] 95 % Madison Oral PUPPY TRAINER.TOP LIFT TRIMMER Work Phone: [facility] 05-17-2022 18:14-0400 Systolic blood pressure 170 mm[Hg] Madison Oral PUPPY TRAINER.TOP LIFT TRIMMER Work Phone: [facility] 03-09-2022 08:50-0400 Body temperature 97.59 [degF] Sai Caro MD Work Phone: [facility] 03-09-2022 08:50-0400 Body weight 98.66 kg Sai Caro MD Work Phone: [facility] 03-09-2022 08:50-0400 Diastolic blood pressure 61 mm[Hg] Sai Caro MD Work Phone: [facility] 03-09-2022 08:50-0400 Heart rate 63 /min Sai Caro MD Work Phone: [facility] 03-09-2022 08:50-0400 Systolic blood pressure 126 mm[Hg] Sai Caro MD Work Phone: [facility] Encounters Encounter Date Encounter Type Care Provider Facility Start: 09-08-2023 End: 09-08-2023 ambulatory SHANT GRIMES Facility:[facility] Start: 09-08-2023 End: 09-08-2023 ambulatory Christian Dietrich MD Work Phone: Hematology/Oncology Procedures Date Procedure Procedure Detail Performing Clinician Start: 03-09-2022 Adult depression screening assessment Sai Caro MD Work Phone: Plan of Treatment Date Care Activity Detail Author Start: 09-01-2026 Diabetes Screening Diabetes Screening [facility] Start: 03-03-2026 DIABETES SCREEN DIABETES SCREEN [facility] Start: 03-19-2025 Urine microalbumin profile DTaP,Tdap,Td Vaccine (2 - Td or Tdap) [facility] Start: 03-02-2025 DIABETES SCREEN DIABETES SCREEN [facility] Start: 01-24-2024 End: 04-24-2024 BCR/ABL1 P210 QUANTITATIVE PCR BLOOD BCR/ABL1 P210 QUANTITATIVE PCR BLOOD Lab Routine 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) Expected: 01/24/2024, Expires: 04/24/2024 [facility] Work Phone: Immunizations Immunization Date Immunization Notes Care Provider Sanjay corona 06-21-2022 COVID-19 original vaccine, booster dose, monovalent (MODERNA) Hannah [place] [facility] 08-21-2013 influenza virus vacc ine, unspecified formulation Sai Caro MD Work Phone: [facility] Payers Date Payer Category Payer Unknown [employer] PPO [id number] 2021-Present [phone] [address] [place] [address] PPO [id number] 2021 Unknown [employer] PPO [id number] 2021-Present [phone] [address] [place] [address] PPO [id number] 2021 Unknown [id number] Social History Date Type Detail Facility Start: 05-17-2022 Tobacco smoking stat us RIIS Ex-smoker [facility] End: 09-27-1981 History of tobacco use Current smoker [facility] End: 09-27-1981 History of tobacco use Cigarette Smoker [facility] History of tobacco use Snuff User [facility] Start: 03-09-2022 End: 09-08-2023 Alcohol intake Current non-drinker of alcohol (finding) [facility] Start: 1945 Sex Assigned At Not on file C [facility] Start: 02-27-2022 End: 09-09-2022 Exposure to SARS-CoV-2 (event) Not sure [facility] Start: 05-17-2022 End: 03-10-2023 Cigarettes smoked current (pack per day) - Reported 0.5 [facility] Start: 05-17-2022 Tobacco use and exposure User of smokeless tobacco [facility] Start: 03-10-2023 End: 09-08-2023 Tobacco use panel [facility] Adult Depression Scr eening Assessment 0 [facility] Clinical Notes 03-09-2022 to 09-08-2023 Christian Dietrich MD - 09/08/2023 10:30 AM Jaime Power APRN.TOP LIFT TRIMMER - 03/10/2023 8:58 AM Jose Caro MD - 09/09/2022 9:38 AM ESTPatient Cary Centeno PA-C - 05/20/2022 6:05 PM EDT Note Date & Type Note Facility 09-08-2023 Note HNO ID: [id number] Author: Christian Dietrich MD Service: ? 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 Here for follow up, doing well. CLINICAL IMPRESSION: CML in remission. RECOMMENDATION/PLAN: 1. See back 4 months with PCR. Written and verbal health teaching given to patient, patient verbalizes understanding and agrees with treatment plan. PAST MEDICAL HISTORY Diagnosis Date HTN (hypertension) Hyperlipidemia Hypogonadism male Panic disorder PAST SURGICAL HISTORY Procedure Laterality Date PAST SURGICAL HISTORY OF 04/2014 Right eye surgery TONSILLECTOMY HX 1970's FAMILY HISTORY Problem Relation Age of Onset Heart Mother MA age 70-72 Stroke Father age 67 Breast Cancer Sister Diabetes Maternal Grandmother Heart Maternal Grandfather MA Social History Tobacco Use Smoking status: Former Packs/day: 0.50 Years: 7.00 Additional pack years: 0.00 Total pack years: 3.50 Types: Cigarettes Quit date: 09/27/1981 Years since quittin.9 Smokeless tobacco: Current Types: Snuff Substance Use Topics Alcohol use: No Drug use: No ALLERGIES: ALLERGIES No Known Allergies CURRENT OUTPATIENT MEDICATIONS: doxepin capsule 10 mg Take 10 mg by mouth daily at bedtime. nebivolol (BYSTOLIC) 5 mg tablet Take 5 mg by mouth once daily. finasteride (PROSCAR) 5 mg tablet Take 5 mg by mouth once daily. hydrOXYchloroQUINE (PLAQUENIL) 200 mg tablet Take 200 mg by mouth twice daily. tamsulosin ER (FLOMAX) 0.4 mg cap Take two capsules by mouth once daily. PRAVASTATIN 40 mg tablet Take 40 mg by mouth once daily. aspirin, enteric coated (ASPIR-81) 81 mg EC tablet Take 1 tablet by mouth once daily. MULTIVITAMIN W-MINERALS/LUTEIN (CENTRUM SILVER ORAL) Take 1 tablet by mouth once daily. cholecalciferol (VITAMIN D3) 400 unit tab Take 400 Int'l Units by mouth once daily. REVIEW OF SYSTEMS: GENERAL: No fever, night sweats, weight loss or malaise. All other reviewed and negative other than HPI. PHYSICAL EXAMINATION: VITAL SIGNS: BP 145/80 Pulse 66 Temp (Src) 97.1 (Temporal) Ht 5' 10 (1.78m) Wt 221 lb (100.2kg) SpO2 95% BMI 31.71 kg/(m2). GENERAL APPEARANCE: Well appearing, in no acute distress, alert and oriented x3, well-hydrated, well nourished. I spent a total of 30 minutes on the date of the service which included preparing to see the patient, [id number] patient care, completing clinical documentation, obtaining and/or reviewing separately obtained history, ordering medications, tests, or procedures, communicating with other HCPs (not separately reported), independently interpreting results (not separately reported), and communicating results to the patient/family/caregiver. 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 Here for follow up, doing well. CLINICAL IMPRESSION: CML in remission. RECOMMENDATION/PLAN: 1. See back 4 months with PCR. Written and verbal health teaching given to patient, patient verbalizes understanding and agrees with treatment plan. PAST MEDICAL HISTORY Diagnosis Date HTN (hypertension) Hyperlipidemia Hypogonadism male Panic disorder PAST SURGICAL HISTORY Procedure Laterality Date PAST SURGICAL HISTORY OF 04/2014 Right eye surgery TONSILLECTOMY HX 1970's FAMILY HISTORY Problem Relation Age of Onset Heart Mother MA age 70-72 Stroke Father age 67 Breast Cancer Sister Diabetes Maternal Grandmother Heart Maternal Grandfather MA Social History Tobacco Use Smoking status: Former Packs/day: 0.50 Years: 7.00 Additional pack years: 0.00 Total pack years: 3.50 Types: Cigarettes Quit date: 09/27/1981 Years since quittin.9 Smokeless tobacco: Current Types: Snuff Substance Use Topics Alcohol use: No Drug use: No ALLERGIES: ALLERGIES No Known Allergies CURRENT OUTPATIENT MEDICATIONS: doxepin capsule 10 mg Take 10 mg by mouth daily at bedtime. nebivolol (BYSTOLIC) 5 mg tablet Take 5 mg by mouth once daily. finasteride (PROSCAR) 5 mg tablet Take 5 mg by mouth once daily. hydrOXYchloroQUINE (PLAQUENIL) 200 mg tablet Take 200 mg by mouth twice daily. tamsulosin ER (FLOMAX) 0.4 mg cap Take two capsules by mouth once daily. PRAVASTATIN 40 mg tablet Take 40 mg by mouth once daily. aspirin, enteric coated (ASPIR-81) 81 mg EC tablet Take 1 tablet by mouth once daily. MULTIVITAMIN W-MINERALS/LUTEIN (CENTRUM SILVER ORAL) Take 1 tablet by mouth once daily. cholecalciferol (VITAMIN D3) 400 unit tab Take 400 Int'l Units by mouth once daily. REVIEW OF SYSTEMS: GENERAL: No fever, night sweats, weight loss or malaise. All other reviewed and negative other than HPI. PHYSICAL EXAMINATION: VITAL SIGNS: BP 145/80 Pulse 66 Temp (Src) 97.1 (Temporal) Ht 5' 10 (1.78m) Wt 221 lb (100.2kg) SpO2 95% BMI 31.71 kg/(m^2). GENERAL APPEARANCE: Well appearing, in no acute distress, alert and oriented x3, well-hydrated, well nourished. I spent a total of 30 minutes on the date of the service which included preparing to see the patient, [id number] patient care, completing clinical documentation, obtaining and/or reviewing separately obtained history, ordering medications, tests, or procedures, communicating with other HCPs (not separately reported), independently interpreting results (not separately reported), and communicating results to the patient/family/caregiver. Electronically Signed: Christian Dietrich MD September 08, 2023 10:38 AM documented in this encounter [facility] 03-10-2023 Note HNO ID: [id number] Author: Chey Power APRN.TOP LIFT TRIMMER Service: ? Author Type: Nurse Practitioner Type: Progress Notes Filed: 03/13/2023 2:18 PM Note Text: Chief Complaint Patient presents with: 6 month check HPI: Henry Gates is a 77 year old male who presents here today for follow up CML. Per Dr. Caro's previous note: H/o hypertension and CML. His CBC initially showed a WBC of 158,000, hemoglobin of 12.9, platelet 149,000. 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 Previous therapy:Tassigna No new concerns today. Appetite: Good. Energy level: Pretty good. Denies fevers or recent illness. Resp:denies cough or sob Cardiac:denies chest pain/palpitations GI:denies abd pain, n/v, moving bowels regularly :denies dysuria/hematuria-has been seen by Nephrology in the past-Dr. Lopez Extrem:denies pain Neuro:denies symptoms of neuropathy Skin:denies rashes Heme:denies bleeding The ROS is otherwise negative. Past medical history, appointments, medications, allergies reviewed. No changes. EXAM: BP 129/56 Pulse 66 Temp 36.6 ?C (97.8 ?F) (Oral) Wt 100.2 kg (221 lb) SpO2 97% BMI 31.71 kg/m? APPEARANCE Well appearing, alert, in no acute distress, well-hydrated, well nourished. HEART RRR with normal S1 and S2, no murmurs LUNG clear to auscultation LYMPH NODES No cervical lymphadenopathy, No supraclavicular lymphadenopathy, and No axillary lymphadenopathy. ABDOMEN bowel sounds normoactive, soft, non-tender EXTREMITIES No edema NEURO Awake, alert and oriented x 3, Normal gait, and No involuntary motions. SKIN Skin color, texture, turgor normal, no suspicious rashes or lesions LABS: Component Latest Ref Rng AND Units 06/09/2022 09/02/2022 03/03/2023 WBC 3.70 - 11.00 k/uL 6.05 5.95 4.65 RBC 4.20 - 6.00 m/uL 5.07 5.24 5.15 Hemoglobin 13.0 - 17.0 g/dL 14.0 14.7 14.1 Hematocrit 39.0 - 51.0 % 40.9 42.5 41.0 MCV 80.0 - 100.0 fL 80.7 81.1 79.6 (L) MCH 26.0 - 34.0 pg 27.6 28.1 27.4 MCHC 30.5 - 36.0 g/dL 34.2 34.6 34.4 RDW-CV 11.5 - 15.0 % 13.5 13.6 13.8 Platelet Count 150 - 400 k/uL 121 (L) 148 (L) 130 (L) MPV 9.0 - 12.7 fL 10.2 10.2 10.4 Neut% % 66.1 56.9 63.7 Abs Neut (ANC) 1.45 - 7.50 k/uL 4.00 3.38 2.96 Lymph% % 22.8 32.9 25.6 Abs Lymph 1.00 - 4.00 k/uL 1.38 1.96 1.19 Dickey% % 6.9 6.2 7.1 Abs Dickey <0.87 k/uL 0.42 0.37 0.33 Eosin% % 2.3 3.0 2.8 Abs Eosin <0.46 k/uL 0.14 0.18 0.13 Baso% % 0.7 0.5 0.4 Abs Baso <0.11 k/uL 0.04 0.03 <0.03 Immature Gran % % 1.2 0.5 0.4 IMMATURE GRANS (ABS) <0.10 k/uL 0.07 0.03 <0.03 NRBC /100 WBC 0.0 0.0 0.0 Absolute nRBC <0.01 k/uL <0.01 <0.01 <0.01 DTYPE Auto Auto Auto Component Latest Ref Rng AND Units 03/02/2022 03/03/2023 Protein, Total 6.3 - 8.0 g/dL 7.2 7.3 Albumin 3.9 - 4.9 g/dL 4.3 4.3 Calcium 8.5 - 10.2 mg/dL 9.3 9.5 Bilirubin, Total 0.2 - 1.3 mg/dL 0.4 0.5 Alkaline Phosphatase 38 - 113 U/L 82 73 AST 14 - 40 U/L 25 25 ALT 10 - 54 U/L 18 21 Glucose 74 - 99 mg/dL 104 (H) 108 (H) BUN 9 - 24 mg/dL 19 20 Creatinine 0.73 - 1.22 mg/dL 1.08 1.28 (H) Sodium 136 - 144 mmol/L 138 138 Potassium 3.7 - 5.1 mmol/L 4.1 4.3 Chloride 97 - 105 mmol/L 103 103 CO2 22 - 30 mmol/L 22 25 Anion Gap 9 - 18 mmol/L 13 10 eGFR >=60 mL/min/1.73mA? 72 58 (L) ASSESSMENT/PLAN: 1. 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) - ICD9: 205.11, ICD10: C92.11 - Has been off therapy for over 2 years now. - No new concerning findings on exam. - Reviewed labs with pt. - CBC/CMP/PCR-BCR/ABL p210 in 3 months. - Follow up with Dr. Dietrich in 6 months with CBC/CMP/PCR-BCR/ABL p210. - Pt. aware to call office with any questions/concerns. The patient indicates understanding of these issues and agrees with the plan. All documentation from previous visit of 09/09/22-Dr. Caro was copied and pasted, documentation has been reviewed and edited as necessary for today's visit. Chey Power APRN.TOP LIFT TRIMMER [facility] 03-10-2023 History of Presen t illness Narrative Chief Complaint Patient presents with: 6 month check HPI: Henry Gates is a 77 year old male who presents here today for follow up CML. Per Dr. Caro's previous note: H/o hypertension and CML. His CBC initially showed a WBC of 158,000, hemoglobin of 12.9, platelet 149,000. 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 Previous therapy:Tassigna No new concerns today. Appetite: Good. Energy level: Pretty good. Denies fevers or recent illness. Resp:denies cough or sob Cardiac:denies chest pain/palpitations GI:denies abd pain, n/v, moving bowels regularly :denies dysuria/hematuria-has been seen by Nephrology in the past-Dr. Lopez Extrem:denies pain Neuro:denies symptoms of neuropathy Skin:denies rashes Heme:denies bleeding The ROS is otherwise negative. Past medical history, appointments, medications, allergies reviewed. No changes. EXAM: BP 129/56 Pulse 66 Temp 36.6 C (97.8 F) (Oral) Wt 100.2 kg (221 lb) SpO2 97% BMI 31.71 kg/m APPEARANCE Well appearing, alert, in no acute distress, well-hydrated, well nourished. HEART RRR with normal S1 and S2, no murmurs LUNG clear to auscultation LYMPH NODES No cervical lymphadenopathy, No supraclavicular lymphadenopathy, and No axillary lymphadenopathy. ABDOMEN bowel sounds normoactive, soft, non-tender EXTREMITIES No edema NEURO Awake, alert and oriented x 3, Normal gait, and No involuntary motions. SKIN Skin color, texture, turgor normal, no suspicious rashes or lesions LABS: Component Latest Ref Rng & Units 06/09/2022 09/02/2022 03/03/2023 WBC 3.70 - 11.00 k/uL 6.05 5.95 4.65 RBC 4.20 - 6.00 m/uL 5.07 5.24 5.15 Hemoglobin 13.0 - 17.0 g/dL 14.0 14.7 14.1 Hematocrit 39.0 - 51.0 % 40.9 42.5 41.0 MCV 80.0 - 100.0 fL 80.7 81.1 79.6 (L) MCH 26.0 - 34.0 pg 27.6 28.1 27.4 MCHC 30.5 - 36.0 g/dL 34.2 34.6 34.4 RDW-CV 11.5 - 15.0 % 13.5 13.6 13.8 Platelet Count 150 - 400 k/uL 121 (L) 148 (L) 130 (L) MPV 9.0 - 12.7 fL 10.2 10.2 10.4 Neut% % 66.1 56.9 63.7 Abs Neut (ANC) 1.45 - 7.50 k/uL 4.00 3.38 2.96 Lymph% % 22.8 32.9 25.6 Abs Lymph 1.00 - 4.00 k/uL 1.38 1.96 1.19 Dickey% % 6.9 6.2 7.1 Abs Dickey <0.87 k/uL 0.42 0.37 0.33 Eosin% % 2.3 3.0 2.8 Abs Eosin <0.46 k/uL 0.14 0.18 0.13 Baso% % 0.7 0.5 0.4 Abs Baso <0.11 k/uL 0.04 0.03 <0.03 Immature Gran % % 1.2 0.5 0.4 IMMATURE GRANS (ABS) <0.10 k/uL 0.07 0.03 <0.03 NRBC /100 WBC 0.0 0.0 0.0 Absolute nRBC <0.01 k/uL <0.01 <0.01 <0.01 DTYPE Auto Auto Auto Component Latest Ref Rng & Units 03/02/2022 03/03/2023 Protein, Total 6.3 - 8.0 g/dL 7.2 7.3 Albumin 3.9 - 4.9 g/dL 4.3 4.3 Calcium 8.5 - 10.2 mg/dL 9.3 9.5 Bilirubin, Total 0.2 - 1.3 mg/dL 0.4 0.5 Alkaline Phosphatase 38 - 113 U/L 82 73 AST 14 - 40 U/L 25 25 ALT 10 - 54 U/L 18 21 Glucose 74 - 99 mg/dL 104 (H) 108 (H) BUN 9 - 24 mg/dL 19 20 Creatinine 0.73 - 1.22 mg/dL 1.08 1.28 (H) Sodium 136 - 144 mmol/L 138 138 Potassium 3.7 - 5.1 mmol/L 4.1 4.3 Chloride 97 - 105 mmol/L 103 103 CO2 22 - 30 mmol/L 22 25 Anion Gap 9 - 18 mmol/L 13 10 eGFR >=60 mL/min/1.73m 72 58 (L) ASSESSMENT/PLAN: 1. 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) - ICD9: 205.11, ICD10: C92.11 - Has been off therapy for over 2 years now. - No new concerning findings on exam. - Reviewed labs with pt. - CBC/CMP/PCR-BCR/ABL p210 in 3 months. - Follow up with Dr. Dietrich in 6 months with CBC/CMP/PCR-BCR/ABL p210. - Pt. aware to call office with any questions/concerns. The patient indicates understanding of these issues and agrees with the plan. All documentation from previous visit of 09/09/22-Dr. Caro was copied and pasted, documentation has been reviewed and edited as necessary for today's visit. Chey Power APRN.CNP documented in this encounter [facility] 09-09-2022 History of Presen t illness Narrative PATIENT NAME: Henry Gates. CLINIC NO: [id number]. ATTENDING PHYSICIAN: Sai Caro MD. DATE OF SERVICE: DIAGNOSIS: CML in complete remission HPI: This is a 77-year-old gentleman with history of hypertension and CML. His CBC initially showed a WBC of 158,000, hemoglobin of 12.9, platelet 149,000. 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 Interim history: He had discontinued Tassigna for 2 years. Patient has no fever, chills, or sweating. Patient denies early satiety or pruritus or weight loss. Patient denies fatigue, or dyspnea. His blood pressure is normal All medications & allergies updated and reviewed by me. REVIEW OF SYSTEMS: CONSTITUTIONAL: No fevers, chills, nightsweats, unintended weight loss HEENT: Denies frequent or severe heaches, nasal congestion/sinus symptoms, problematic allergy problems. EYES: No diplopia or blurry vision. CARDIOVASCULAR: No chest pain, dyspnea, palpitations, orthopnea, PND, ankle edema. PULM: No dyspnea, unexplained cough. GI: No dysphagia/odynophagia, problematic reflux, constipation, diarrhea, changes in stool habits, hematochezia, melena. : No new urinary complaints, including dysuria, gross hematuria or pyuria. NEURO: No new balance problems, peripheral weakness/paresthesias or numbness of concern. MUSC-SKEL: No new joint pain, swelling, or erythema. PSY: No concerns regarding depression, anxiety or panic. INTEGUMENTARY: No new skin changes (rash, new or changing mole, new growth) PHYSICAL EXAMINATION: 77 year-old gentleman in no acute distress Performance status 100% BP 139/66 Pulse 62 Temp (Src) 97.6 (Temporal) Wt 217 lb (98.4kg) HEENT: Head is normocephalic, atraumatic. Sclerae white, conjunctivae pink. PEERL. EOMs are intact. Oropharynx is benign. LYMPHATICS: There is no palpable adenopathy in the neck, supraclavicular region, axillae, or groin. LUNGS: Lungs are clear to percussion and auscultation. HEART: Heart is normal rhythm with a grade 2/6 holosystolic murmurs, no gallops, or rubs. ABDOMEN: Soft and nontender. No hepatomegaly, or splenomegaly EXTREMITIES: Are without edema. NEUROLOGIC: Exam is physiologic LABS: Component Latest Ref Rng & Units 09/02/2022 WBC 3.70 - 11.00 k/uL 5.95 RBC 4.20 - 6.00 m/uL 5.24 Hemoglobin 13.0 - 17.0 g/dL 14.7 Hematocrit 39.0 - 51.0 % 42.5 MCV 80.0 - 100.0 fL 81.1 MCH 26.0 - 34.0 pg 28.1 MCHC 30.5 - 36.0 g/dL 34.6 RDW-CV 11.5 - 15.0 % 13.6 Platelet Count 150 - 400 k/uL 148 (L) MPV 9.0 - 12.7 fL 10.2 Neut% % 56.9 Abs Neut (ANC) 1.45 - 7.50 k/uL 3.38 Lymph% % 32.9 Abs Lymph 1.00 - 4.00 k/uL 1.96 Dickey% % 6.2 Abs Dickey <0.87 k/uL 0.37 Eosin% % 3.0 Abs Eosin <0.46 k/uL 0.18 Baso% % 0.5 Abs Baso <0.11 k/uL 0.03 Immature Gran % % 0.5 IMMATURE GRANS (ABS) <0.10 k/uL 0.03 NRBC /100 WBC 0.0 Absolute nRBC <0.01 k/uL <0.01 DTYPE Auto ASSESSMENT: 77 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 - pcr BCL/ABL MR > 4.7 after stopping Tasigna for 24 months. PLAN: . -Repeat CBC, CMP and PCR-BCR/ABL p210 and office visit in 6-months -Vaccinations are up to date. Portions of this documentation were copied and pasted from previous office visit notes in order to provide a cohesive continuity of the history. The note has been reviewed and edited and updated as necessary. Sai Caro MD Cc: Dr. Shant Grimes documented in this encounter [facility] 09-09-2022 Miscellaneous Notes Pt's brought in pt's completed Advanced Directives this date. SW sent to internal scanning. ABEBA Ley-S documented in this encounter [facility] 05-20-2022 Instructions Corrina Centeno PA-C - 05/20/2022 6:41 PM EDT Discontinue antibiotics. Push the fluids. Salt water gargles as frequently during the day, but most importantly at night prior to laying down. Continue on mucinex (guiafenasin) as needed. Will also add in allergy pill (cetirzine), in the case there could be an allergic component. May also want to consider reflux component (GERD) down the road if symptoms persists. At that point, I would likely advise ENT evaluation. documented in this encounter [facility] 05-20-2022 History of Presen t illness Narrative Subjective HPI HPI Henry Gates is a 76 year old male who presents today for CC of phlegm in throat, frequent-throat clearing x 2 weeks. States he doesn't really have a cough right now. Was seen on 05/17 and txed for suspected sinusitis with Augmentin. Does not seem to be helping at all since starting this medication. Pt has tried Mucinex, in addition to the abx- which didn't seem to help. BP 142/78 Pulse 67 Temp 37.4 C (99.3 F) (Tympanic) Resp 18 Wt 98.4 kg (217 lb) SpO2 97% BMI 31.14 kg/m ALLERGIES No Known Allergies ACTIVE PROBLEM LIST Cml in Remission (Hcc) Family History Problem Relation Age of Onset Heart Mother MA age 70-72 Stroke Father age 67 Breast Cancer Sister Diabetes Maternal Grandmother Heart Maternal Grandfather MA Social History Tobacco Use Smoking status: Former Packs/day: 0.50 Years: 7.00 Pack years: 3.50 Types: Cigarettes Quit date: 09/27/1981 Years since quittin.6 Smokeless tobacco: Current Types: Snuff Substance Use Topics Alcohol use: No Drug use: No Review of Systems Constitutional: Negative for chills, fever and malaise/fatigue. HENT: Positive for sore throat. Negative for congestion (Upon initial presentation- now PND), ear pain and sinus pain. Respiratory: Positive for sputum production. Negative for cough, shortness of breath and wheezing. Cardiovascular: Negative for chest pain. Neurological: Negative for headaches. Objective BP 142/78 Pulse 67 Temp 37.4 C (99.3 F) (Tympanic) Resp 18 Wt 98.4 kg (217 lb) SpO2 97% BMI 31.14 kg/m Physical Exam Vitals and nursing note reviewed. Constitutional: General: He is not in acute distress. Appearance: He is well-developed. He is not ill-appearing. HENT: Head: Normocephalic and atraumatic. Right Ear: Tympanic membrane, ear canal and external ear normal. No middle ear effusion. Tympanic membrane is not injected, perforated, erythematous, retracted or bulging. Left Ear: Tympanic membrane, ear canal and external ear normal. No middle ear effusion. Tympanic membrane is not injected, perforated, erythematous, retracted or bulging. Nose: No mucosal edema or rhinorrhea. Right Sinus: No maxillary sinus tenderness or frontal sinus tenderness. Left Sinus: No maxillary sinus tenderness or frontal sinus tenderness. Mouth/Throat: Pharynx: Uvula midline. No oropharyngeal exudate or posterior oropharyngeal erythema. Tonsils: No tonsillar abscesses. Comments: Thickened saliva/mucoid drainage noted posterior oropharynx Cardiovascular: Rate and Rhythm: Normal rate and regular rhythm. Heart sounds: Normal heart sounds. Pulmonary: Effort: Pulmonary effort is normal. Breath sounds: Normal breath sounds. No decreased breath sounds, wheezing, rhonchi or rales. Musculoskeletal: Cervical back: Normal range of motion. Lymphadenopathy: Head: Right side of head: No submental, submandibular, tonsillar, preauricular, posterior auricular or occipital adenopathy. Left side of head: No submental, submandibular, tonsillar, preauricular, posterior auricular or occipital adenopathy. Cervical: No cervical adenopathy. Right cervical: No superficial or posterior cervical adenopathy. Left cervical: No superficial or posterior cervical adenopathy. Skin: General: Skin is warm and dry. Neurological: Mental Status: He is alert and oriented to person, place, and time. Psychiatric: Mood and Affect: Affect normal. Behavior: Behavior is cooperative. ASSESSMENT/PLAN: 1. PND (post-nasal drip) - ICD9: 784.91, ICD10: R09.82 Unclear etiology, but does not appear to be c/w infectious cause Possibly LPR versus allergies Discontinue antibiotics. Push the fluids. Salt water gargles as frequently during the day, but most importantly at night prior to laying down. Continue on mucinex (guiafenasin) as needed. Will also add in cetirzine, in the case there could be an allergic component. May also want to consider reflux component (GERD) down the road if symptoms persists. If symptoms persist, recommend ENT evaluation (used to see Dr. Somers so advised f/u with another provider in that office). - CETIRIZINE 10 MG TABLET Pt advised to see PCP if symptoms persist or progress. Reviewed red flags with patient and when to seek care sooner. The patient indicates understanding of these issues and agrees with the plan. Corrina Centeno PA-C documented in this encounter [facility] 05-17-2022 Instructions Madison Mixon APRN.YUSUF - 05/17/2022 6:31 PM EDT -Increase fluid intake. --Rest as much as possible. - Nasal saline spray, radha pot, flonase Take the entire course of antibiotics as prescribed. DO NOT stop taking it early, even if you are feeling better. -Monitor for signs of worsening infection: increased temperature, pain in face, ear pain or headaches or increase in nasal congestion/mucous that is not improving. -Educated patient on side effects of medication. * Seek medical care immediately, call 911, go to ER if you have chest pain, difficulty breathing, shortness of breath, inability to swallow. documented in this encounter [facility] 05-17-2022 History of Presen t illness Narrative Subjective The history is provided by the patient. No russian language professor was used. HPI Henry Gates is a 76 year old male who presents today for CC of sinus congestion, post nasal drainage for over a week. He started using mucinex on Monday without relief. He denies any fever chills or body aches. BP 170/84 Pulse 66 Temp 36.6 C (97.9 F) Resp 20 Wt 98.7 kg (217 lb 9.6 oz) SpO2 95% BMI 31.22 kg/m Social History Tobacco Use Smoking status: Former Packs/day: 0.50 Years: 7.00 Pack years: 3.50 Types: Cigarettes Quit date: 09/27/1981 Years since quittin.6 Smokeless tobacco: Current Types: Snuff Substance Use Topics Alcohol use: No Drug use: No PAST MEDICAL HISTORY Diagnosis Date HTN (hypertension) Hyperlipidemia Hypogonadism male Panic disorder I have confirmed and edited as necessary, the [facility] Review of Systems Constitutional: Negative for chills and fever. HENT: Positive for congestion and sinus pain. Negative for ear pain and sore throat. Post nasal drainage Respiratory: Negative for cough, sputum production, shortness of breath and wheezing. Cardiovascular: Negative for chest pain. Musculoskeletal: Negative for myalgias. Neurological: Negative for headaches. Objective Physical Exam Vitals and nursing note reviewed. Constitutional: Appearance: He is not ill-appearing. HENT: Head: Normocephalic and atraumatic. Right Ear: Tympanic membrane, ear canal and external ear normal. Left Ear: Tympanic membrane, ear canal and external ear normal. Nose: Mucosal edema, congestion and rhinorrhea present. Right Sinus: Maxillary sinus tenderness and frontal sinus tenderness present. Left Sinus: Maxillary sinus tenderness and frontal sinus tenderness present. Mouth/Throat: Pharynx: Uvula midline. No oropharyngeal exudate or posterior oropharyngeal erythema. Tonsils: No tonsillar abscesses. Cardiovascular: Rate and Rhythm: Normal rate and regular rhythm. Heart sounds: Normal heart sounds. Pulmonary: Effort: Pulmonary effort is normal. Breath sounds: Normal breath sounds. No decreased breath sounds, wheezing, rhonchi or rales. Lymphadenopathy: Head: Right side of head: No submental, submandibular, tonsillar or preauricular adenopathy. Left side of head: No submental, submandibular, tonsillar or preauricular adenopathy. Cervical: No cervical adenopathy. Right cervical: No superficial cervical adenopathy. Left cervical: No superficial cervical adenopathy. Neurological: Mental Status: He is alert. ASSESSMENT/PLAN: 1. Acute non-recurrent pansinusitis - ICD9: 461.8, ICD10: J01.40 - Will begin treatment with Augmentin 875 mg PO BID for 5 days - Supportive care with plenty of fluids, rest, and analgesia prn. - Follow up in one week if symptoms persist or worsen. Diagnosis and treatment plan were discussed and questions were answered to the patient's satisfaction. Pt acknowledged understanding of concepts and follow up plan. Specific signs and symptoms that would indicate the need for higher level of care were discussed in detail warranting prompt ER evaluation. Madison Mixon APRN.YUSUF documented in this encounter [facility] 03-09-2022 History of Presen t illness Narrative PATIENT NAME: Henry Gates. CLINIC NO: [id number]. ATTENDING PHYSICIAN: Sai Caro MD. 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 His CBC initially showed a WBC of 158,000, hemoglobin of 12.9, platelet 149,000. 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 Interim history: He had discontinued Tassigna for 1 1/2 year. Patient has no fever, chills, or sweating. Patient denies early satiety or pruritus or weight loss. Patient denies fatigue, or dyspnea. His blood pressure is normal All medications & allergies updated and reviewed by me. REVIEW OF SYSTEMS: CONSTITUTIONAL: No fevers, chills, nightsweats, unintended weight loss HEENT: Denies frequent or severe heaches, nasal congestion/sinus symptoms, problematic allergy problems. EYES: No diplopia or blurry vision. CARDIOVASCULAR: No chest pain, dyspnea, palpitations, orthopnea, PND, ankle edema. PULM: No dyspnea, unexplained cough. GI: No dysphagia/odynophagia, problematic reflux, constipation, diarrhea, changes in stool habits, hematochezia, melena. : No new urinary complaints, including dysuria, gross hematuria or pyuria. NEURO: No new balance problems, peripheral weakness/paresthesias or numbness of concern. MUSC-SKEL: No new joint pain, swelling, or erythema. PSY: No concerns regarding depression, anxiety or panic. INTEGUMENTARY: No new skin changes (rash, new or changing mole, new growth) PHYSICAL EXAMINATION: 76 year-old gentleman in no acute distress Performance status 100% BP 126/61 Pulse 63 Temp (Src) 97.6 (Temporal) Wt 217 lb 8 oz (98.7kg) HEENT: Head is normocephalic, atraumatic. Sclerae white, conjunctivae pink. PEERL. EOMs are intact. Oropharynx is benign. LYMPHATICS: There is no palpable adenopathy in the neck, supraclavicular region, axillae, or groin. LUNGS: Lungs are clear to percussion and auscultation. HEART: Heart is normal rhythm with a grade 2/6 holosystolic murmurs, no gallops, or rubs. ABDOMEN: Soft and nontender. No hepatomegaly, or splenomegaly EXTREMITIES: Are without edema. NEUROLOGIC: Exam is physiologic LABS: Component Latest Ref Rng & Units 03/02/2022 WBC 3.70 - 11.00 k/uL 5.21 RBC 4.20 - 6.00 m/uL 5.20 Hemoglobin 13.0 - 17.0 g/dL 14.4 Hematocrit 39.0 - 51.0 % 41.4 MCV 80.0 - 100.0 fL 79.6 (L) MCH 26.0 - 34.0 pg 27.7 MCHC 30.5 - 36.0 g/dL 34.8 RDW-CV 11.5 - 15.0 % 13.7 Platelet Count 150 - 400 k/uL 139 (L) MPV 9.0 - 12.7 fL 10.2 Neut% % 58.8 Abs Neut (ANC) 1.45 - 7.50 k/uL 3.06 Lymph% % 29.9 Abs Lymph 1.00 - 4.00 k/uL 1.56 Dickey% % 6.1 Abs Dickey <0.87 k/uL 0.32 Eosin% % 3.8 Abs Eosin <0.46 k/uL 0.20 Baso% % 0.8 Abs Baso <0.11 k/uL 0.04 Immature Gran % % 0.6 IMMATURE GRANS (ABS) <0.10 k/uL 0.03 NRBC /100 WBC 0.0 Absolute nRBC <0.01 k/uL <0.01 DTYPE Auto Component Latest Ref Rng & Units 03/02/2022 Protein, Total 6.3 - 8.0 g/dL 7.2 Albumin 3.9 - 4.9 g/dL 4.3 Calcium 8.5 - 10.2 mg/dL 9.3 Bilirubin, Total 0.2 - 1.3 mg/dL 0.4 Alkaline Phosphatase 38 - 113 U/L 82 AST 14 - 40 U/L 25 ALT 10 - 54 U/L 18 Glucose 74 - 99 mg/dL 104 (H) BUN 9 - 24 mg/dL 19 Creatinine 0.73 - 1.22 mg/dL 1.08 Sodium 136 - 144 mmol/L 138 Potassium 3.7 - 5.1 mmol/L 4.1 Chloride 97 - 105 mmol/L 103 CO2 22 - 30 mmol/L 22 Anion Gap 9 - 18 mmol/L 13 eGFR >=60 mL/min/1.73m 72 LD 135 - 225 U/L 182 BCR/ABL1 P210 MR >4.7 ASSESSMENT: 76 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 - MR > 4.7 after stopping Tasigna for 18 months. PLAN: . Repeat CBC and PCR-BCR/ABL p210 every 3 months x 2, and office visit in 6-months Unless he continues to have an increased level by PCR, no further treatment is indicated for his chronic myelogenous leukemia. Continue to monitor counts and PCR quarterly. Portions of this documentation were copied and pasted from previous office visit notes in order to provide a cohesive continuity of the history. The note has been reviewed and edited and updated as necessary. Sai Caro MD Cc: Dr. Shant Grimes documented in this encounter [facility] Acute non-recurrent pansinusitis- Primary documented in this encounter [facility] note* Diagnosis PND (post-nasal drip)- Primary Postnasal drip documented in this encounter [facility] note* Diagnosis 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 documented in this encounter [facility] note* Diagnosis 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 documented in this encounter [facility] note* Diagnosis 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 documented in this encounter [facility] Advance Directives No Advanced Directives Records FoundDocuments on File Type Date Recorded Patient Yeast Supervisor Expl anation Advance Directive(s) 09/15/2022 3:35 PM Summary Purpose Family History No Family History Records Found Additional Source Comments Source Comments (unrecognize d section and content) In the event this informatio n is protected by the Federal Confidentiality of Alcohol and Drug Abuse Patient Records regulations: The Federal rules restrict any use of the information to criminally investigate or prosecute any alcohol or drug abuse patient.[facility] the event this information is protected by the Federal Confidentiality of Alcohol and Drug Abuse Patient Records regulations: The Federal rules restrict any use of the information to criminally investigate or prosecute any alcohol or drug abuse patient.[facility] the event this information is protected by the Federal Confidentiality of Alcohol and Drug Abuse Patient Records regulations: The Federal rules restrict any use of the information to criminally investigate or prosecute any alcohol or drug abuse patient.[facility] the event this information is protected by the Federal Confidentiality of Alcohol and Drug Abuse Patient Records regulations: The Federal rules restrict any use of the information to criminally investigate or prosecute any alcohol or drug abuse patient.[facility] the event this information is protected by the Federal Confidentiality of Alcohol and Drug Abuse Patient Records regulations: The Federal rules restrict any use of the information to criminally investigate or prosecute any alcohol or drug abuse patient.[facility] the event this information is protected by the Federal Confidentiality of Alcohol and Drug Abuse Patient Records regulations: The Federal rules restrict any use of the information to criminally investigate or prosecute any alcohol or drug abuse patient.[facility] the event this information is protected by the Federal Confidentiality of Alcohol and Drug Abuse Patient Records regulations: The Federal rules restrict any use of the information to criminally investigate or prosecute any alcohol or drug abuse patient.[facility] Reason for Visit (unrecogniz ed section and content) Reason Comments Sore Throat Congestion, lack of sleep from congestion x1 week Reason Comments Cough Cough, ST x 1 week Reason Comments Advanced Directives Reason Comments 6 month check Care Teams (unrecognized sec tion and content) Package Designer Relationship Specialty Start Date End Date Shant Grimes Chi PCP - General Family Practice 09/21/12 Package Designer Relationship Specialty Start Date End Date Shant Grimes Chi PCP - General Family Practice 09/21/12 Package Designer Relationship Specialty Start Date End Date Shant Grimes Chi PCP - General [facility] Medicine 09/21/12 Package Designer Relationship Specialty Start Date End Date Shant Grimes Chi PCP - [facility] Medicine 09/21/12 Package Designer Relationship Specialty Start Date End Date Shant Grimes Chi PCP - [facility] 09/21/12 Package Designer Relationship Specialty Start Date End Date Shant Grimes Chi PCP - [facility] Medicine 09/21/12 (unrecognized sect ion and content) No Status Records Found INFORMATION SOURCE (unrecogn ized section and content) FOR RECORDS PERTAINING TO PATIENTS WHO ARE OR HAVE BEEN ENROLLED IN A CHEMICAL DEPENDENCY/SUBSTANCEABUSE PROGRAM, SOME INFORMATION MAY BE OMITTED. This clinical summary was aggregated from multiple sources. Caution should be exercised in using it in the provision of clinical care. This summary normalizes information from multiple sources, and as a consequence, information in this document may materially change the coding, format and clinical context of patient data. In addition, data may be omitted in some cases. CLINICAL DECISIONS SHOULD BE BASED ON THE PRIMARY CLINICAL RECORDS. [facility]. provides no warranty or guarantee of the accuracy or completeness of information in this document.
[2023-10-16 12:34] LABS: Absolute Lymphocyte Count 1.75 X10^3/uL (0.83-4.51); Absolute Neutrophil Count 3.5 X10^3/uL (2.0-7.7); Basophil# 0.04 X10^3/uL; Basophil% 0.7 % (0-1); Eosinophil# 0.19 X10^3/uL; Eosinophils% 3.2 % (0-5); Hematocrit 42.6 % (40-54); Hemoglobin 13.9 g/dL (13.0-16.5); Lymphocyte # 1.75 X10^3/ul (0.83-4.51); Lymphocyte % 29.7 % (19-41); Mean Corp Hgb Conc 32.6 g/dL (32-36); Mean Corpuscular Volume 82.7 fL (80-94); Mean Platelet Vol. 10.4 fl (6.2-12.0); Monocyte# 0.38 X10^3/uL; Monocyte% 6.5 % (0-10); NRBC Flagged by Analyzer 0 % (0-5); Neutrophil % 59.4 % (47-70); Platelet Count 139 K/mm3 (150-450); RBC Distribution Width CV 13.5 % (11.6-14.6); RBC Distribution Width SD 40.4 fl (35.1-43.9); Red Blood Count 5.15 M/mm3 (4.6-6.2); White Blood Count 5.9 K/mm3 (4.4-11.0)
[2023-10-16 13:48] LABS: AST(SGOT) 26 U/L (15-37); Alanine Aminotransfer ALT/SGPT 25 U/L (16-61); Albumin, Serum 3.6 g/dL (3.2-5.0); Alkaline Phosphatase 72 U/L (45-117); Anion Gap 7 (5-15); BUN 18 mg/dL (7-18); BUN/Creat Ratio 15.1 RATIO (10-20); Calcium,Total 9.1 mg/dL (8.5-10.1); Chloride 104 mmol/L (98-107); Creatinine, Serum 1.19 mg/dL (0.70-1.30); EST Glomerular Filtration Rate 63 mL/min (>60); Est Glom Filt Rate - Afr Amer 76 mL/min (>60); Globulin 3.5 g/dL (2.2-4.2); Glucose 107 mg/dL (74-106); Potassium 3.9 mmol/L (3.5-5.1); Protein, Total 7.1 g/dL (6.4-8.2); Sodium Level 135 mmol/L (136-145)
== END | disposition home or self-care (01) ==
LOC: MTLAB 10:56
PROVIDERS: PCP Family Medicine Geriatric Medicine; Referring Provider Internal Medicine Rheumatology; Visit Provider Internal Medicine Rheumatology
DX: M06.4 Inflammatory polyarthropathy (principal); Z79.899 Other long term (current) drug therapy
CPT/HCPCS: 36415; 80053; 85025

== ENCOUNTER → 2023-10-24 | Outpatient (CLI) | payer BC, SELFPAY ==
--- OUTSIDE RECORDS SUMMARY | 2023-10-24 10:53 | XMS RPT_ITS | CCD ---
Author Name Unknown Address [address] [place] [address] Organization [facility] Care Team Providers Care Cashier Host/Hostess Name Role Phone Brianna, Shant Chi Primary Care Provider CHRISTIAN DIETRICH Referring Unavailable BRIANNA, SHANT CHI [...] 177.8 cm Christian Dietrich MD Work Phone: [facility] 09-08-2023 10:24-0500 Body temperature 97.11 [degF] Christian Dietrich MD Work Phone: [facility] 09-08-2023 10:24-0500 Body weight 100.25 kg Christian Dietrich MD Work Phone: [facility] 09-08-2023 10:24-0500 Diastolic blood pressure 80 mm[Hg] Christian Dietrich MD Work Phone: [facility] 09-08-2023 10:24-0500 Heart rate 66 /min Christian Dietrich MD Work Phone: [facility] 09-08-2023 10:24-0500 SaO2% (BldA) [Mass fraction] 95 % Christian Dietrich MD Work Phone: [facility] 09-08-2023 10:24-0500 Systolic blood pressure 145 mm[Hg] Christian Dietrich MD Work Phone: [facility] 03-10-2023 08:46-0400 Body temperature 97.81 [degF] Chey Power DRY PASTE SUPERVISOR.MORTUARY BEAUTICIAN Work Phone: [facility] 03-10-2023 08:46-0400 Body weight 100.25 kg Chey Power DRY PASTE SUPERVISOR.MORTUARY BEAUTICIAN Work Phone: [facility] 03-10-2023 08:46-0400 Diastolic blood pressure 56 mm[Hg] Bee Power DRY PASTE SUPERVISOR.MORTUARY BEAUTICIAN Work Phone: [facility] 03-10-2023 08:46-0400 Heart rate 66 /min Chey Power DRY PASTE SUPERVISOR.MORTUARY BEAUTICIAN Work Phone: [facility] 03-10-2023 08:46-0400 SaO2% (BldA) [Mass fraction] 97 % Chey Power DRY PASTE SUPERVISOR.MORTUARY BEAUTICIAN Work Phone: [facility] 03-10-2023 08:46-0400 Systolic blood pressure 129 mm[Hg] Chey Power DRY PASTE SUPERVISOR.MORTUARY BEAUTICIAN Work Phone: [facility] 09-09-2022 09:21-0500 Body temperature 97.59 [degF] Sai Caro MD Work Phone: [facility] 09-09-2022 09:21-0500 Body weight 98.43 kg Sai Caro MD Work Phone: [facility] 09-09-2022 09:21-0500 Diastolic blood pressure 66 mm[Hg] Sai Caro MD Work Phone: [facility] 09-09-2022 09:21-0500 Heart rate 62 /min Sai Caro MD Work Phone: [facility] 09-09-2022 09:21-0500 Systolic blood pressure 139 mm[Hg] Sai Caro MD Work Phone: [facility] 05-20-2022 17:58-0400 Body temperature 99.3 [degF] Corrina Denbow PA-C Work Phone: [facility] 05-20-2022 17:58-0400 Body weight 98.43 kg Corrina Denbow PA-C Work Phone: [facility] 05-20-2022 17:58-0400 Diastolic blood pressure 78 mm[Hg] Corrina Denbow PA-C Work Phone: [facility] 05-20-2022 17:58-0400 Heart rate 67 /min Corrina Denbow PA-C Work Phone: [facility] 05-20-2022 17:58-0400 Respiratory rate 18 /min Corrina Denbow PA-C Work Phone: [facility] 05-20-2022 17:58-0400 SaO2% (BldA) [Mass fraction] 97 % Corrina Denbow PA-C Work Phone: [facility] 05-20-2022 17:58-0400 Systolic blood pressure 142 mm[Hg] Corrina Centeno PA-C Work Phone: [facility] 05-17-2022 18:14-0400 Body temperature 97.9 [degF] Madison Oral DRY PASTE SUPERVISOR.MORTUARY BEAUTICIAN Work Phone: [facility] 05-17-2022 18:14-0400 Body weight 98.7 kg Madison Oral DRY PASTE SUPERVISOR.MORTUARY BEAUTICIAN Work Phone: [facility] 05-17-2022 18:14-0400 Diastolic blood pressure 84 mm[Hg] Madison Oral DRY PASTE SUPERVISOR.MORTUARY BEAUTICIAN Work Phone: [facility] 05-17-2022 18:14-0400 Heart rate 66 /min Madison Oral DRY PASTE SUPERVISOR.MORTUARY BEAUTICIAN Work Phone: [facility] 05-17-2022 18:14-0400 Respiratory rate 20 /min Madison Oral DRY PASTE SUPERVISOR.MORTUARY BEAUTICIAN Work Phone: [facility] 05-17-2022 18:14-0400 SaO2% (BldA) [Mass fraction] 95 % Madison Oral DRY PASTE SUPERVISOR.MORTUARY BEAUTICIAN Work Phone: [facility] 05-17-2022 18:14-0400 Systolic blood pressure 170 mm[Hg] Madison Oral DRY PASTE SUPERVISOR.MORTUARY BEAUTICIAN Work Phone: [facility] 03-09-2022 08:50-0400 Body temperature 97.59 [degF] Sai Caro MD Work Phone: [facility] 03-09-2022 08:50-0400 Body weight 98.66 kg Sai Caro MD Work Phone: [facility] 03-09-2022 08:50-0400 Diastolic blood pressure 61 mm[Hg] Sai Caro MD Work Phone: [facility] 03-09-2022 08:50-0400 Heart rate 63 /min Sai Caro MD Work Phone: [facility] 03-09-2022 08:50-0400 Systolic blood pressure 126 mm[Hg] Sai Caro MD Work Phone: [facility] Encounters Encounter Date Encounter Type Care Provider Facility Start: 09-08-2023 End: 09-08-2023 ambulatory SHANT GRIMES Facility:[facility] Start: 09-08-2023 End: 09-08-2023 ambulatory Christian Dietrich MD Work Phone: Hematology/Oncology Procedures Date Procedure Procedure Detail Performing Clinician Start: 03-09-2022 Adult depression screening assessment Sai Caro MD Work Phone: Plan of Treatment Date Care Activity Detail Author Start: 09-01-2026 Diabetes Screening Diabetes Screening [facility] Start: 03-03-2026 DIABETES SCREEN DIABETES SCREEN [facility] Start: 03-19-2025 Urine microalbumin profile DTaP,Tdap,Td Vaccine (2 - Td or Tdap) [facility] Start: 03-02-2025 DIABETES SCREEN DIABETES SCREEN [facility] Start: 01-24-2024 End: 04-24-2024 BCR/ABL1 P210 QUANTITATIVE PCR BLOOD BCR/ABL1 P210 QUANTITATIVE PCR BLOOD Lab Routine 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) Expected: 01/24/2024, Expires: 04/24/2024 [facility] Work Phone: Immunizations Immunization Date Immunization Notes Care Provider Sanjay corona 06-21-2022 COVID-19 original vaccine, booster dose, monovalent (MODERNA) Hannah [place] [facility] 08-21-2013 influenza virus vacc ine, unspecified formulation Sai Caro MD Work Phone: [facility] Payers Date Payer Category Payer Unknown [employer] PPO [id number] 2021-Present [phone] [address] [place] [address] PPO [id number] 2021 Unknown [employer] PPO [id number] 2021-Present [phone] [address] [place] [address] PPO [id number] 2021 Unknown [id number] Social History Date Type Detail Facility Start: 05-17-2022 Tobacco smoking stat us [facility] Ex-smoker [facility] End: 09-27-1981 History of tobacco use Current smoker [facility] End: 09-27-1981 History of tobacco use Cigarette Smoker [facility] History of tobacco use Snuff User [facility] Start: 03-09-2022 End: 09-08-2023 Alcohol intake Current non-drinker of alcohol (finding) [facility] Start: 1945 Sex Assigned At Not on file [facility] Start: 02-27-2022 End: 09-09-2022 Exposure to SARS-CoV-2 (event) Not sure [facility] Start: 05-17-2022 End: 03-10-2023 Cigarettes smoked current (pack per day) - Reported 0.5 [facility] Start: 05-17-2022 Tobacco use and exposure User of smokeless tobacco [facility] Start: 03-10-2023 End: 09-08-2023 Tobacco use panel [facility] Adult Depression Scr eening Assessment 0 [facility] Clinical Notes 03-09-2022 to 09-08-2023 Christian Dietrich MD - 09/08/2023 10:30 AM Jaime Power APRN.MORTUARY BEAUTICIAN - 03/10/2023 8:58 AM Jose Caro MD - 09/09/2022 9:38 AM ESTPatient Cary Centeno PA-C - 05/20/2022 6:05 PM EDT Note Date & Type Note Facility 09-08-2023 Note HNO ID: [id number] Author: Christian Dietrich MD Service: ? Author [...] Problem Relation Age of Onset Heart Mother [place] age 70-72 Stroke Father age 67 Breast Cancer Sister Diabetes Maternal Grandmother Heart Maternal Grandfather [place] Social History Tobacco Use Smoking status: Former [...] which included preparing to see the patient, [id number] patient care, completing clinical documentation, obtaining and/or reviewing separately obtained history, ordering medications, tests, or procedures, communicating with other HCPs (not separately reported), independently interpreting results (not separately reported), and communicating results to the patient/family/caregiver. Electronically Signed: Christian Dietrich MD September 08, 2023 10:38 AM [facility] 09-08-2023 History of Presen t illness Narrative [...] Problem Relation Age of Onset Heart Mother NV age 70-72 Stroke Father age 67 Breast Cancer Sister Diabetes Maternal Grandmother Heart Maternal Grandfather [place] Social History Tobacco Use Smoking status: Former [...] which included preparing to see the patient, [id number] patient care, completing clinical documentation, obtaining and/or reviewing separately obtained history, ordering medications, tests, or procedures, communicating with other HCPs (not separately reported), independently interpreting results (not separately reported), and communicating results to the patient/family/caregiver. Electronically Signed: Christian Dietrich MD September 08, 2023 10:38 AM documented in this encounter [facility] 03-10-2023 Note HNO ID: [id number] Author: Chey Power APRN.MORTUARY BEAUTICIAN Service: ? Author Type: Nurse Practitioner Type: [...] 1.00 - 4.00 k/uL 1.38 1.96 1.19 [place]% % 6.9 6.2 7.1 Abs [place] <0.87 k/uL 0.42 0.37 0.33 Eosin% % [...] as necessary for today's visit. Chey Power APRN.MORTUARY BEAUTICIAN [facility] 03-10-2023 History of Presen t illness Narrative [...] 1.00 - 4.00 k/uL 1.38 1.96 1.19 [place]% % 6.9 6.2 7.1 Abs [place] <0.87 k/uL 0.42 0.37 0.33 Eosin% % [...] Chey Power APRN.CNP documented in this encounter [facility] 09-09-2022 History of Presen t illness Narrative PATIENT NAME: Henry Gates. CLINIC NO: [id number]. ATTENDING PHYSICIAN: Sai Caro MD. DATE OF [...] Abs Lymph 1.00 - 4.00 k/uL 1.96 [place]% % 6.2 Abs [place] <0.87 k/uL 0.37 Eosin% % 3.0 Abs [...] Dr. Shant Grimes documented in this encounter [facility] 09-09-2022 Miscellaneous Notes Pt's brought in pt's completed Advanced Directives this date. SW sent to internal scanning. ABEBA Ley-S documented in this encounter [facility] 05-20-2022 Instructions Corrina Centeno PA-C - 05/20/2022 [...] advise ENT evaluation. documented in this encounter [facility] 05-20-2022 History of Presen t illness Narrative [...] Problem Relation Age of Onset Heart Mother [place] age 70-72 Stroke Father age 67 Breast Cancer Sister Diabetes Maternal Grandmother Heart Maternal Grandfather [place] Social History Tobacco Use Smoking status: Former [...] Corrina Centeno PA-C documented in this encounter [facility] 05-17-2022 Instructions Madison Mixon APRN.YUSUF - 05/17/2022 [...] inability to swallow. documented in this encounter [facility] 05-17-2022 History of Presen t illness Narrative Subjective The history is provided by the patient. No nuclear physics professor was used. HPI Henry Gates is [...] have confirmed and edited as necessary, the [facility] Review of Systems Constitutional: Negative for [...] Madison Mixon APRN.YUSUF documented in this encounter [facility] 03-09-2022 History of Presen t illness Narrative PATIENT NAME: Henry Gates. CLINIC NO: [id number]. ATTENDING PHYSICIAN: Sai Caro MD. DATE OF [...] Abs Lymph 1.00 - 4.00 k/uL 1.56 [place]% % 6.1 Abs [place] <0.87 k/uL 0.32 Eosin% % 3.8 Abs [...] Dr. 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 documented in this encounter [facility] note* Diagnosis 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 documented in this encounter [facility] Advance Directives No Advanced Directives Records FoundDocuments on File Type Date Recorded Patient Health Aide Expl anation Advance Directive(s) 09/15/2022 3:35 PM [...] or prosecute any alcohol or drug abuse patient.[facility] the event this information is protected by the Federal Confidentiality of Alcohol and Drug Abuse Patient Records regulations: The Federal rules restrict any use of the information to criminally investigate or prosecute any alcohol or drug abuse patient.[facility] the event this information is protected by the Federal Confidentiality of Alcohol and Drug Abuse Patient Records regulations: The Federal rules restrict any use of the information to criminally investigate or prosecute any alcohol or drug abuse patient.[facility] the event this information is protected by the Federal Confidentiality of Alcohol and Drug Abuse Patient Records regulations: The Federal rules restrict any use of the information to criminally investigate or prosecute any alcohol or drug abuse patient.[facility] the event this information is protected by the Federal Confidentiality of Alcohol and Drug Abuse Patient Records regulations: The Federal rules restrict any use of the information to criminally investigate or prosecute any alcohol or drug abuse patient.[facility] the event this information is protected by the Federal Confidentiality of Alcohol and Drug Abuse Patient Records regulations: The Federal rules restrict any use of the information to criminally investigate or prosecute any alcohol or drug abuse patient.[facility] the event this information is protected by the Federal Confidentiality of Alcohol and Drug Abuse Patient Records regulations: The Federal rules restrict any use of the information to criminally investigate or prosecute any alcohol or drug abuse patient.[facility] Reason for Visit (unrecogniz ed section and content) Reason Comments Sore Throat Congestion, lack of sleep from congestion x1 week Reason Comments Cough Cough, ST x 1 week Reason Comments Advanced Directives Reason Comments 6 month check Care Teams (unrecognized sec tion and content) Cashier Host/Hostess Relationship Specialty Start Date End Date Shant Grimes Chi PCP - General Family Practice 09/21/12 Cashier Host/Hostess Relationship Specialty Start Date End Date Shant Grimes Chi PCP - General Family Practice 09/21/12 Cashier Host/Hostess Relationship Specialty Start Date End Date Shant Grimes Chi PCP - General [facility] Medicine 09/21/12 Cashier Host/Hostess Relationship Specialty Start Date End Date Shant Grimes Chi PCP - [facility] Medicine 09/21/12 Cashier Host/Hostess Relationship Specialty Start Date End Date Shant Grimes Chi PCP - [facility] 09/21/12 Cashier Host/Hostess Relationship Specialty Start Date End Date Shant Grimes Chi PCP - [facility] Medicine 09/21/12 (unrecognized sect ion and [...] BE BASED ON THE PRIMARY CLINICAL RECORDS. [employer] [facility] provides no warranty or guarantee of the accuracy or completeness of information in this document.
[2023-10-24 12:51] LABS: Absolute Lymphocyte Count 1.45 X10^3/uL (0.83-4.51); Absolute Neutrophil Count 4.7 X10^3/uL (2.0-7.7); Basophil# 0.04 X10^3/uL; Basophil% 0.6 % (0-1); Eosinophil# 0.15 X10^3/uL; Eosinophils% 2.2 % (0-5); Hematocrit 43.9 % (40-54); Hemoglobin 14.5 g/dL (13.0-16.5); Lymphocyte # 1.45 X10^3/ul (0.83-4.51); Lymphocyte % 21.3 % (19-41); Mean Corpuscular Volume 81.6 fL (80-94); Mean Platelet Vol. 10.7 fl (6.2-12.0); Monocyte% 5.9 % (0-10); NRBC Flagged by Analyzer 0 % (0-5); Neutrophil # 4.74 X10^3/uL (2.7-7.7); Neutrophil % 69.6 % (47-70); Platelet Count 150 K/mm3 (150-450); RBC Distribution Width CV 13.7 % (11.6-14.6); RBC Distribution Width SD 39.8 fl (35.1-43.9); Red Blood Count 5.38 M/mm3 (4.6-6.2); White Blood Count 6.8 K/mm3 (4.4-11.0)
[2023-10-24 13:05] LABS: Vitamin D,25 Hydroxy 53.4 ng/mL
[2023-10-24 13:29] LABS: AST(SGOT) 27 U/L (15-37); Alanine Aminotransfer ALT/SGPT 29 U/L (16-61); Albumin, Serum 3.9 g/dL (3.2-5.0); Alkaline Phosphatase 72 U/L (45-117); Anion Gap 7 (5-15); BUN 15 mg/dL (7-18); BUN/Creat Ratio 12.7 RATIO (10-20); Chloride 105 mmol/L (98-107); Creatinine, Serum 1.18 mg/dL (0.70-1.30); EST Glomerular Filtration Rate 64 mL/min (>60); Est Glom Filt Rate - Afr Amer 77 mL/min (>60); Globulin 3.8 g/dL (2.2-4.2); Glucose 99 mg/dL (74-106); Potassium 4.3 mmol/L (3.5-5.1); Protein, Total 7.7 g/dL (6.4-8.2); Sodium Level 137 mmol/L (136-145); Thyroid Stim Hormone (TSH) 0.44 uIU/mL (0.358-3.74)
== END | disposition home or self-care (01) ==
LOC: POLAB3 10:11
PROVIDERS: PCP Family Medicine Geriatric Medicine; Visit Provider Family Medicine Geriatric Medicine
DX: I10 Essential (primary) hypertension (principal); E55.9 Vitamin D deficiency, unspecified
CPT/HCPCS: 36415; 80053; 82306; 84443; 85025

== ENCOUNTER → 2024-01-18 | Outpatient (CLI) | payer BC, SELFPAY ==
[2024-01-18 11:16] LABS: PSA,Total - Annual Screen 1.15 ng/mL (0.00-4.00)
== END | disposition home or self-care (01) ==
LOC: LAB 09:57
PROVIDERS: PCP Family Medicine Geriatric Medicine; Referring Provider Nurse Practitioner; Visit Provider Nurse Practitioner
DX: Z12.5 Encounter for screening for malignant neoplasm of prostate (principal)
CPT/HCPCS: 36415; 84153; G0103

== ENCOUNTER → 2024-04-10 | Outpatient (CLI) | payer BC, SELFPAY ==
[2024-04-10 12:18] LABS: Absolute Lymphocyte Count 1.93 X10^3/uL (0.83-4.51); Absolute Neutrophil Count 4.7 X10^3/uL (2.0-7.7); Basophil# 0.04 X10^3/uL; Basophil% 0.5 % (0-1); Eosinophils% 2.7 % (0-5); Hematocrit 43.2 % (40-54); Hemoglobin 14.7 g/dL (13.0-16.5); Lymphocyte # 1.93 X10^3/ul (0.83-4.51); Lymphocyte % 26.1 % (19-41); Mean Corpuscular Hgb 27.4 pg (27.0-32.0); Mean Corpuscular Volume 80.6 fL (80-94); Mean Platelet Vol. 10.4 fl (6.2-12.0); Monocyte# 0.47 X10^3/uL; Monocyte% 6.4 % (0-10); NRBC Flagged by Analyzer 0 % (0-5); Neutrophil # 4.72 X10^3/uL (2.7-7.7); Neutrophil % 63.9 % (47-70); Platelet Count 156 K/mm3 (150-450); RBC Distribution Width CV 13.4 % (11.6-14.6); RBC Distribution Width SD 38.8 fl (35.1-43.9); Red Blood Count 5.36 M/mm3 (4.6-6.2); White Blood Count 7.4 K/mm3 (4.4-11.0)
[2024-04-10 12:55] LABS: ALB/GLOB Ratio 1.1 RATIO (0.9-2.4); AST(SGOT) 26 U/L (15-37); Alanine Aminotransfer ALT/SGPT 22 U/L (16-61); Albumin, Serum 3.9 g/dL (3.2-5.0); Alkaline Phosphatase 73 U/L (45-117); Anion Gap 7 (5-15); BUN 19 mg/dL (7-18); BUN/Creat Ratio 16.5 RATIO (10-20); Calcium,Total 9.3 mg/dL (8.5-10.1); Chloride 103 mmol/L (98-107); Creatinine, Serum 1.15 mg/dL (0.70-1.30); EST Glomerular Filtration Rate 65 mL/min (>60); Est Glom Filt Rate - Afr Amer 79 mL/min (>60); Globulin 3.6 g/dL (2.2-4.2); Glucose 104 mg/dL (74-106); Potassium 4.1 mmol/L (3.5-5.1); Protein, Total 7.5 g/dL (6.4-8.2); Sodium Level 135 mmol/L (136-145)
== END | disposition home or self-care (01) ==
PROVIDERS: PCP Family Medicine Geriatric Medicine; Referring Provider Internal Medicine Rheumatology; Visit Provider Internal Medicine Rheumatology
DX: M06.4 Inflammatory polyarthropathy (principal); Z79.899 Other long term (current) drug therapy
CPT/HCPCS: 36415; 80053; 85025

== ENCOUNTER → 2024-04-24 | Outpatient (CLI) | payer BC, SELFPAY ==
[2024-04-24 11:18] LABS: Absolute Lymphocyte Count 0.77 X10^3/uL (0.83-4.51); Absolute Neutrophil Count 4.6 X10^3/uL (2.0-7.7); Basophil# 0.03 X10^3/uL; Basophil% 0.5 % (0-1); Eosinophils% 1.7 % (0-5); Hematocrit 40.6 % (40-54); Lymphocyte # 0.77 X10^3/ul (0.83-4.51); Lymphocyte % 13.2 % (19-41); Mean Corp Hgb Conc 34.5 g/dL (32-36); Mean Corpuscular Hgb 27.4 pg (27.0-32.0); Mean Corpuscular Volume 79.5 fL (80-94); Mean Platelet Vol. 10.7 fl (6.2-12.0); Monocyte# 0.32 X10^3/uL; Monocyte% 5.5 % (0-10); NRBC Flagged by Analyzer 0 % (0-5); Neutrophil # 4.59 X10^3/uL (2.7-7.7); Neutrophil % 78.4 % (47-70); Platelet Count 139 K/mm3 (150-450); RBC Distribution Width CV 13.7 % (11.6-14.6); RBC Distribution Width SD 39.7 fl (35.1-43.9); Red Blood Count 5.11 M/mm3 (4.6-6.2); White Blood Count 5.9 K/mm3 (4.4-11.0)
[2024-04-24 11:56] LABS: Vitamin D,25 Hydroxy 51.4 ng/mL
[2024-04-24 12:27] LABS: ALB/GLOB Ratio 1.1 RATIO (0.9-2.4); AST(SGOT) 27 U/L (15-37); Alanine Aminotransfer ALT/SGPT 27 U/L (16-61); Albumin, Serum 3.8 g/dL (3.2-5.0); Alkaline Phosphatase 69 U/L (45-117); Anion Gap 8 (5-15); BUN 26 mg/dL (7-18); BUN/Creat Ratio 21.5 RATIO (10-20); Calcium,Total 9.2 mg/dL (8.5-10.1); Chloride 107 mmol/L (98-107); Creatinine, Serum 1.21 mg/dL (0.70-1.30); EST Glomerular Filtration Rate 62 mL/min (>60); Est Glom Filt Rate - Afr Amer 75 mL/min (>60); Globulin 3.6 g/dL (2.2-4.2); Glucose 98 mg/dL (74-106); Potassium 3.9 mmol/L (3.5-5.1); Protein, Total 7.4 g/dL (6.4-8.2); Sodium Level 138 mmol/L (136-145); Thyroid Stim Hormone (TSH) 0.28 uIU/mL (0.358-3.74)
[2024-04-25 11:30] LABS: Free T3 2.7 pg/mL (2.18-3.98); T4 Free Direct 0.85 ng/dL (0.76-1.46)
[2024-04-30 16:10] LABS: Thyroxin Bind Glob (TBG) 14 ug/mL (13-39)
== END | disposition home or self-care (01) ==
LOC: LAB 10:07
PROVIDERS: PCP Family Medicine Geriatric Medicine; Referring Provider Family Medicine Geriatric Medicine; Visit Provider Family Medicine Geriatric Medicine
DX: I10 Essential (primary) hypertension (principal); N52.9 Male erectile dysfunction, unspecified; E55.9 Vitamin D deficiency, unspecified; E78.5 Hyperlipidemia, unspecified; R53.83 Other fatigue
CPT/HCPCS: 36415; 80053; 82306; 84403; 84439; 84442; 84443; 84481; 85025

== ENCOUNTER → 2024-05-23 | Outpatient (CLI) | payer BC, SELFPAY ==
--- NOTE | 2024-05-23 15:09 | CT_ITS ---
STUDY: CT ABDOMEN AND PELVIS WITH CONTRAST REASON FOR EXAM: Male, 78 years old. ABD PAIN RADIATION DOSAGE (If Supplied By Facility): CTDIvol = ( 19.82 ) mGy, DLP = ( 1222.54 ) mGycm TECHNIQUE: Transaxial images were obtained from the dome of the diaphragm to the symphysis pubis with oral contrast. Oral and amp; IV Gastrografin and amp; 100mL Isovue-300 was administered. Sagittal and coronal images were reconstructed. Individualized dose optimization techniques were used for this CT. COMPARISON: None. FINDINGS: The visualized lung bases are unremarkable. Coronary artery calcification. Subcentimeters cysts are seen along the superior aspect of the left lobe of the liver. A 1 cm cyst is seen in the inferior aspect of the right lobe of the liver. Small gallstones are seen along the dependent portion of the gallbladder lumen. Normal spleen. Normal pancreas. Normal bilateral adrenal glands. 8 mm cyst is seen in the lower pole of the right kidney. Normal left kidney. There is a small hiatal hernia. Normal small intestine. Normal colon. The appendix is visualized and appears normal. There is scattered atherosclerotic calcification of the abdominal aorta, without a demonstrated aneurysm. Normal inferior vena cava. Normal retroperitoneum. Normal urinary bladder. Mild enlargement of the prostate with calcifications. Mild degree of diffuse bladder wall thickening. Small bilateral areas containing fat larger on the right side. There are mild degenerative changes of the visualized lumbar spine. CT/Abdomen/Pelvis WITH Contrast IMPRESSION: Small hepatic cysts. Small gallstones along the dependent portion of the gallbladder lumen. Mildly enlarged prostate with the bladder wall thickening. Electronically Signed: Rich Malone MD at 10:33 EDT ,
[2024-05-23 15:19] LABS: Absolute Neutrophil Count 5.2 X10^3/uL (2.0-7.7); Basophil# 0.05 X10^3/uL; Basophil% 0.7 % (0-1); Eosinophil# 0.11 X10^3/uL; Eosinophils% 1.6 % (0-5); Hematocrit 42.5 % (40-54); Hemoglobin 14.4 g/dL (13.0-16.5); Lymphocyte % 14.7 % (19-41); Mean Corp Hgb Conc 33.9 g/dL (32-36); Mean Corpuscular Hgb 27.1 pg (27.0-32.0); Mean Corpuscular Volume 79.9 fL (80-94); Mean Platelet Vol. 9.7 fl (6.2-12.0); Monocyte# 0.42 X10^3/uL; Monocyte% 6.2 % (0-10); NRBC Flagged by Analyzer 0 % (0-5); Neutrophil # 5.21 X10^3/uL (2.7-7.7); Neutrophil % 76.4 % (47-70); Platelet Count 146 K/mm3 (150-450); RBC Distribution Width CV 13.4 % (11.6-14.6); RBC Distribution Width SD 38.5 fl (35.1-43.9); Red Blood Count 5.32 M/mm3 (4.6-6.2); White Blood Count 6.8 K/mm3 (4.4-11.0)
[2024-05-23 16:17] LABS: ALB/GLOB Ratio 1.1 RATIO (0.9-2.4); AST(SGOT) 28 U/L (15-37); Alanine Aminotransfer ALT/SGPT 24 U/L (16-61); Albumin, Serum 3.9 g/dL (3.2-5.0); Alkaline Phosphatase 69 U/L (45-117); Anion Gap 7 (5-15); BUN 17 mg/dL (7-18); BUN/Creat Ratio 12.8 RATIO (10-20); Calcium,Total 9.3 mg/dL (8.5-10.1); Chloride 104 mmol/L (98-107); Creatinine, Serum 1.33 mg/dL (0.70-1.30); EST Glomerular Filtration Rate 55 mL/min (>60); Est Glom Filt Rate - Afr Amer 67 mL/min (>60); Globulin 3.7 g/dL (2.2-4.2); Glucose 104 mg/dL (74-106); Potassium 4.6 mmol/L (3.5-5.1); Protein, Total 7.6 g/dL (6.4-8.2); Sodium Level 135 mmol/L (136-145)
== END | disposition home or self-care (01) ==
PROVIDERS: PCP Family Medicine Geriatric Medicine; Referring Provider Family Medicine Geriatric Medicine; Visit Provider Family Medicine Geriatric Medicine
DX: R10.9 Unspecified abdominal pain (principal); I10 Essential (primary) hypertension
CPT/HCPCS: 36415; 74177; 80053; 85025; Q9967

== ENCOUNTER → 2024-09-18 | Outpatient (CLI) | payer BC, SELFPAY ==
[2024-09-18 12:49] LABS: Absolute Lymphocyte Count 1.98 X10^3/uL (0.83-4.51); Absolute Neutrophil Count 3.6 X10^3/uL (2.0-7.7); Basophil# 0.03 X10^3/uL; Basophil% 0.5 % (0-1); Eosinophils% 3.2 % (0-5); Hematocrit 41.9 % (40-54); Hemoglobin 14.5 g/dL (13.0-16.5); Lymphocyte # 1.98 X10^3/ul (0.83-4.51); Lymphocyte % 31.5 % (19-41); Mean Corp Hgb Conc 34.6 g/dL (32-36); Mean Corpuscular Hgb 27.9 pg (27.0-32.0); Mean Corpuscular Volume 80.6 fL (80-94); Mean Platelet Vol. 11.2 fl (6.2-12.0); Monocyte# 0.44 X10^3/uL; NRBC Flagged by Analyzer 0 % (0-5); Neutrophil # 3.62 X10^3/uL (2.7-7.7); Neutrophil % 57.5 % (47-70); Platelet Count 144 K/mm3 (150-450); RBC Distribution Width CV 13.3 % (11.6-14.6); RBC Distribution Width SD 38.4 fl (35.1-43.9); White Blood Count 6.3 K/mm3 (4.4-11.0)
[2024-09-18 13:20] LABS: ALB/GLOB Ratio 1.1 RATIO (0.9-2.4); AST(SGOT) 25 U/L (15-37); Alanine Aminotransfer ALT/SGPT 26 U/L (16-61); Albumin, Serum 3.9 g/dL (3.2-5.0); Alkaline Phosphatase 69 U/L (45-117); Anion Gap 7 (5-15); BUN 13 mg/dL (7-18); BUN/Creat Ratio 10.7 RATIO (10-20); Calcium,Total 9.4 mg/dL (8.5-10.1); Chloride 104 mmol/L (98-107); Creatinine, Serum 1.21 mg/dL (0.70-1.30); EST Glomerular Filtration Rate 62 mL/min (>60); Est Glom Filt Rate - Afr Amer 75 mL/min (>60); Globulin 3.6 g/dL (2.2-4.2); Glucose 104 mg/dL (74-106); Potassium 3.8 mmol/L (3.5-5.1); Protein, Total 7.5 g/dL (6.4-8.2); Sodium Level 137 mmol/L (136-145)
== END | disposition home or self-care (01) ==
LOC: MTLAB 10:01
PROVIDERS: PCP Family Medicine Geriatric Medicine; Referring Provider Internal Medicine Rheumatology; Visit Provider Internal Medicine Rheumatology
DX: M06.4 Inflammatory polyarthropathy (principal); Z79.899 Other long term (current) drug therapy
CPT/HCPCS: 36415; 80053; 85025

== ENCOUNTER → 2024-10-30 | Outpatient (CLI) | payer BC, SELFPAY ==
[2024-10-30 09:42] LABS: Absolute Lymphocyte Count 1.33 X10^3/uL (0.83-4.51); Absolute Neutrophil Count 3.4 X10^3/uL (2.0-7.7); Basophil# 0.02 X10^3/uL; Basophil% 0.4 % (0-1); Eosinophil# 0.13 X10^3/uL; Eosinophils% 2.5 % (0-5); Hematocrit 42.9 % (40-54); Hemoglobin 14.4 g/dL (13.0-16.5); Lymphocyte # 1.33 X10^3/ul (0.83-4.51); Lymphocyte % 25.4 % (19-41); Mean Corp Hgb Conc 33.6 g/dL (32-36); Mean Corpuscular Volume 80.3 fL (80-94); Mean Platelet Vol. 10.4 fl (6.2-12.0); Monocyte# 0.37 X10^3/uL; Monocyte% 7.1 % (0-10); NRBC Flagged by Analyzer 0 % (0-5); Neutrophil # 3.37 X10^3/uL (2.7-7.7); Neutrophil % 64.2 % (47-70); Platelet Count 168 K/mm3 (150-450); RBC Distribution Width CV 13.4 % (11.6-14.6); RBC Distribution Width SD 38.6 fl (35.1-43.9); Red Blood Count 5.34 M/mm3 (4.6-6.2); White Blood Count 5.2 K/mm3 (4.4-11.0)
[2024-10-30 10:21] LABS: Vitamin D,25 Hydroxy 61.3 ng/mL
[2024-10-30 10:28] LABS: ALB/GLOB Ratio 1.1 RATIO (0.9-2.4); AST(SGOT) 23 U/L (15-37); Alanine Aminotransfer ALT/SGPT 24 U/L (16-61); Alkaline Phosphatase 74 U/L (45-117); Anion Gap 9 (5-15); BUN 16 mg/dL (7-18); BUN/Creat Ratio 12.3 RATIO (10-20); Calcium,Total 9.2 mg/dL (8.5-10.1); Chloride 103 mmol/L (98-107); EST Glomerular Filtration Rate 57 mL/min (>60); Est Glom Filt Rate - Afr Amer 69 mL/min (>60); Globulin 3.8 g/dL (2.2-4.2); Glucose 107 mg/dL (74-106); Potassium 4.3 mmol/L (3.5-5.1); Protein, Total 7.8 g/dL (6.4-8.2); Sodium Level 136 mmol/L (136-145)
== END | disposition home or self-care (01) ==
LOC: POLAB3 09:16
PROVIDERS: PCP Family Medicine Geriatric Medicine; Visit Provider Family Medicine Geriatric Medicine
DX: I10 Essential (primary) hypertension (principal); E55.9 Vitamin D deficiency, unspecified
CPT/HCPCS: 36415; 80053; 82306; 84443; 85025

== ENCOUNTER → 2024-12-23 | Outpatient (CLI) | payer BC, SELFPAY ==
--- NOTE | 2024-12-23 17:15 | RAD_ITS ---
PROCEDURE: Lumbar spine radiographs, five views 12/23/2024 REASON FOR EXAM: LOWER BACK PAIN TECHNIQUE: Five views of the lumbar spine were obtained. COMPARISON: None. FINDINGS: Five views of the lumbar spine were obtained. Bones are mildly osteopenic. Included portions of the pelvis and SI joints are intact. Minimal grade 1 anterolisthesis of L4 relative to L5. No acute lumbar vertebral body fracture. Mild/moderate multilevel degenerative disc and facet disease in the lower lumbar spine. RAD/L/S Spine Min 4 Views IMPRESSION: Mild osteopenia. No acute bony abnormality of the lumbar spine. Mild/moderate multilevel degenerative disc and facet disease in the lumbar spin e. If there is persistent pain or clinical concern, follow-up MRI evaluation may be considered. Reading Location: [facility]
== END | disposition home or self-care (01) ==
LOC: RAD 17:08
PROVIDERS: PCP Family Medicine Geriatric Medicine; Referring Provider Family Medicine Geriatric Medicine; Visit Provider Family Medicine Geriatric Medicine
DX: M54.50 Low back pain, unspecified (principal)
CPT/HCPCS: 72110

== ENCOUNTER 2025-01-22 12:00 | Outpatient (RCR) | payer BC, SELFPAY ==
--- NOTE | 2024-12-27 09:59 | HP.PTEVAL_ITS ---
Patient's Visit Information Visit Information Visit Information: HENRY WILKINSON is a 79 year old M referred to Physical Therapy by Dr. Carlos Grimes MD with a diagnosis of LBP/DDD. Date of Evaluation: 12/27/24 Physical Therapist: REJI Lucas Visit Plan Frequency: 2x /Week Duration: 2 Months Plan: 2X/ week for 8 weeks for Postural exercises, core strengthening, flexibility of HS, QUADS, and trunk with HEP Subjective Subjective: Pt has pain in LB and goes down the back of his legs He sat in a lawn chair when playing his play station for 4-5 hours and then he could not stand up. He tends to lean FW when he plays video games. He has been having pain for like 4 months but it got worse last week and then they went to the Dr. Dr Grimes did x-rays and some arthritis and DDD. He also has polyarthropathy and sees Dr Pop. The medicines and the [address] Grimes really helped with his pain. He can sit better. He is sleeping ok. The pain does not wake him up at night and he is sleeping good. He reports that he does not have weakness in his legs. He is not playing video games right now because he wants the pain gone first. He reports that he always walks funny because of flat feet. When he stands up from sitting he walks bent over a little bit. Pt had 3 injections. Pain Back pain: Pain Intensity (Out of 10): 1 leg pain: Pain Intensity (Out of 10): 0 Objective Objective: Gait: walks with decreased stride, WBOS and occ step out Posture: sitting: flexed trunk, rounded shoulders, standing posture: flexed at the L spine and rounded shoulder and fw head Pt is able to heel and toe raise with UE support and decreased ROM LE MMT: R hip flex 14.8 and L 13.8 R knee ext 17.9 and L 16.3 R knee flex 9.6 and L 6.3 Trunk AROM: flex 100, Ext to neutral, SB B 50, Rot B 50% prone lying.. no pain prone to ADRIANO no pain just a stretch and very limited ROM bridge: 1/2 normal ROM LTR.. tight in both directions and some pain at end range for the patient. Hamstrings are very tight and increase pain with stretching Pain in LB B SLR Balance/Special Test Scores Oswestry Low Back Score: 11 Goals Goal 1:: I HEP Goal Time Frame: 4-6 Weeks Goal 2:: Be able to sit for 30 min without having back pain and not being on pain meds Goal Time Frame: 4-6 Weeks Goal 3:: Increase Trunk AROM: (at the time of the eval: flex 100, Ext to neutral, SB B 50, Rot B 50%) Goal Time Frame: 4-6 Weeks Goal 4:: Be able to have better standing posture: (at time of the eval: flexed trunk and FW head) Goal Time Frame: 6-8 Weeks Rehabilitation Potential Rehabilitation Potential: Good Anticipated Interventions Patient/Client Instruction: Educate patient on: Condition and Plan of Care For the Purpose of:: To decrease pain, To increase ROM, To improve nutrient delivery to tissue, To improve muscle performance and motor function, To improve ability to perform ADL's, To increase tolerance to activity/condition/position, To improve performance and independence with ADL's, To decrease level of supervision to perform tasks, To improve ability of physical actions for home/community/work/leisure, To improve health of tissue, To decrease soft tissue restriction, To increase flexibility/ROM, To improve balance and To improve safety with gait Therapeutic Exercise to Include: Strength training, Endurance training, Body mechanics, Postural training, Flexibilty training, Gait and locomotor training, Neuromotor development, Passive ROM, Active ROM, Dynamic Lumbar Stabilization and Scapular Strength/Stabilization For the Purpose of:: To decrease pain, To increase ROM, To improve nutrient delivery to tissue, To increase oxygenation perfusion, To improve ability to perform ADL's, To increase tolerance to activity/condition/position, To improve performance and independence with ADL's, To decrease level of supervision to perform tasks, To improve ability of physical actions for home/community/work/leisure, To improve gait and locomotor functions, To improve health of tissue, To decrease soft tissue restriction and To increase flexibility/ROM Functional Training to Include: Gait training For the Purpose of:: To improve gait and locomotor functions Manual Therapy Techniques to Include: Passive ROM and Soft tissue mobilization For the Purpose of:: To decrease pain, To increase ROM, To improve nutrient delivery to tissue and To improve muscle performance and motor function Cryotherapy (ice pack, ice massage): Yes Thermo therapy (hot pack): Yes For the Purpose of:: To decrease pain, To decrease swelling/inflammation, To increase ROM, To improve nutrient delivery to tissue, To improve muscle performance and motor function and To improve ability to perform ADL's Text: Thank you for the opportunity to evaluate your patient. For Medicare and Medicare HMO plans, please review the plan of care and approve it. It will need to be FAXED BACK to us at [phone] for Medicare purposes. For Medicare only, by signing this I certify the plan of care. Please let me know if there are questions or concerns regarding this plan of care. Physician Signature: Date:
--- NOTE | 2025-01-22 13:00 | HP.PTREVAL ---
Re-Evaluation Intro: Dr. Carlos Grimes MD, It has been my pleasure to treat HENRY WILKINSON over the last 7 visits for LBP/DDD. Please see the progress note below for an update on the physical therapy plan of care! Subjective Subjective: Pt reported that he had no dizziness until he came over today and rolled over on the bed. Maybe he had light dizziness a few times rolling over at home but it seemed to be much better until today. Pt reports 90% improvement for his back pain Objective Objective/Function: flex 100, Ext to neutral, SB B 75, Rot B 75% Posture: still flexed at the trunk and slight FW head Pt had +Eply today but seemed to correct but will need to reassess to make sure it is gone. Plan Plan Plan: DC PT for his back to HEP. Get approval for 4 additional visits for R BPPV (new Dr order) and + Hallpike for torsional nystagmus on the R. Balance/Gait/Functional tests Balance/Special Test Scores Oswestry Low Back Score: 4 Goals Goals Goal 1:: I HEP Goal Time Frame: 4-6 Weeks Goal Progress: Goal Met Goal 2:: Be able to sit for 30 min without having back pain and not being on pain meds Goal Time Frame: 4-6 Weeks Goal Progress: Goal Met Goal 3:: Increase Trunk AROM: (at the time of the eval: flex 100, Ext to neutral, SB B 50, Rot B 50%) Goal Time Frame: 4-6 Weeks Goal Progress: Goal Met Goal 4:: Be able to have better standing posture: (at time of the eval: flexed trunk and FW head) Goal Time Frame: 6-8 Weeks Goal Progress: Progressing Goal 5:: Negative R Hallpike Goal Time Frame: 2-4 Weeks Anticipated Interventions Anticipated Interventions Patient/Client Instruction: Educate patient on: Condition and Plan of Care For the Purpose of:: To decrease pain, To increase ROM, To improve nutrient delivery to tissue, To improve muscle performance and motor function, To improve ability to perform ADL's, To increase tolerance to activity/condition/position, To improve performance and independence with ADL's, To decrease level of supervision to perform tasks, To improve ability of physical actions for home/community/work/leisure, To improve health of tissue, To decrease soft tissue restriction, To increase flexibility/ROM, To improve balance and To improve safety with gait Therapeutic Exercise to Include: Strength training, Endurance training, Body mechanics, Postural training, Flexibilty training, Gait and locomotor training, Neuromotor development, Passive ROM, Active ROM, Dynamic Lumbar Stabilization and Scapular Strength/Stabilization For the Purpose of:: To decrease pain, To increase ROM, To improve nutrient delivery to tissue, To increase oxygenation perfusion, To improve ability to perform ADL's, To increase tolerance to activity/condition/position, To improve performance and independence with ADL's, To decrease level of supervision to perform tasks, To improve ability of physical actions for home/community/work/leisure, To improve gait and locomotor functions, To improve health of tissue, To decrease soft tissue restriction and To increase flexibility/ROM Functional Training to Include: Gait training For the Purpose of:: To improve gait and locomotor functions Manual Therapy Techniques to Include: Passive ROM and Soft tissue mobilization For the Purpose of:: To decrease pain, To increase ROM, To improve nutrient delivery to tissue and To improve muscle performance and motor function Cryotherapy (ice pack, ice massage): Yes Thermo therapy (hot pack): Yes For the Purpose of:: To decrease pain, To decrease swelling/inflammation, To increase ROM, To improve nutrient delivery to tissue, To improve muscle performance and motor function and To improve ability to perform ADL's Re-Evaluation Ending Re-evaluation ending: Please do not hesitate to contact me at [phone] by phone or if you have questions or concerns regarding this new plan of care! Sincerely, REJI Lucas
--- NOTE | 2025-01-22 13:35 | HP.PTDCSUM ---
Discharge Summary D/C summary: It has been my pleasure to treat HENRY WILKINSON referred by Dr. Carlos Grimes MD, with the diagnosis of LBP/DDD for a total of 7 visit(s). Discharge Date: Please see the following information for a summary of their discharge status. Subjective Subjective: Pt reported that he had no dizziness until he came over today and rolled over on the bed. Maybe he had light dizziness a few times rolling over at home but it seemed to be much better until today. Pt reports 90% improvement for his back pain Pain Back pain: Pain Intensity (Out of 10): 1 leg pain: Pain Intensity (Out of 10): 0 Overall Improvement % Improvement: 90 Objective Objective/Function: flex 100, Ext to neutral, SB B 75, Rot B 75% Posture: still flexed at the trunk and slight FW head Pt had +Eply today but seemed to correct but will need to reassess to make sure it is gone. Goals Goal 1:: I HEP Goal Progress: Goal Met Goal 2:: Be able to sit for 30 min without having back pain and not being on pain meds Goal Progress: Goal Met Goal 3:: Increase Trunk AROM: (at the time of the eval: flex 100, Ext to neutral, SB B 50, Rot B 50%) Goal Progress: Goal Met Goal 4:: Be able to have better standing posture: (at time of the eval: flexed trunk and FW head) Goal Progress: Progressing Goal 5:: Negative R Hallpike Plan Plan: DC PT for his back to HEP. Get approval for 4 additional visits for R BPPV (new Dr order) and + Hallpike for torsional nystagmus on the R. D/C Information d/c sentence: If there are questions or concerns regarding this patient's physical therapy, please feel free to call me at [phone]. Thank you for the referral of this patient. Sincerely, Michelle Villafana, MPT Balance/Gait/Functional tests Balance/Special Test Scores Oswestry Low Back Score: 4 Improvement % Improvement: 90
== END 2025-01-22 13:42 | disposition home or self-care (01) ==
LOC: PT 12:00
PROVIDERS: PCP Family Medicine Geriatric Medicine; Referring Provider Family Medicine Geriatric Medicine; Visit Provider Family Medicine Geriatric Medicine
DX: M54.50 Low back pain, unspecified (principal); M51.9 Unspecified thoracic, thoracolumbar and lumbosacral intervertebral disc disorder; R42 Dizziness and giddiness
CPT/HCPCS: 97110; 97161; 97530

== ENCOUNTER → 2025-03-10 | Outpatient (CLI) | payer BC, SELFPAY ==
[2025-03-10 12:45] LABS: ALB/GLOB Ratio 1.6 RATIO (0.9-2.4); AST(SGOT) 28 U/L (<=37); Alanine Aminotransfer ALT/SGPT 24 U/L (<=46); Albumin, Serum 4.4 g/dL (3.4-4.8); Alkaline Phosphatase 70 U/L (40-129); Anion Gap 11 (5-15); BUN 20 mg/dL (4-19); BUN/Creat Ratio 19.2 RATIO (10-20); Calcium,Total 9.4 mg/dL (7.6-11.0); Carbon Dioxide 24.2 mmol/L (21.0-32.0); Chloride 103 mmol/L (98-108); Creatinine, Serum 1.03 mg/dL (0.70-1.20); EST Glomerular Filtration Rate 74 (>60); Globulin 2.6 g/dL (2.2-4.2); Glucose 110 mg/dL (70-99); Potassium 4.2 mmol/L (3.3-5.1); Sodium Level 138 mmol/L (133-145); Total Bilirubin 0.44 mg/dL (0.00-1.30)
[2025-03-10 13:56] LABS: Absolute Lymphocyte Count 1.58 X10^3/uL (0.83-4.51); Basophil# 0.03 X10^3/uL; Basophil% 0.6 % (0-1); Eosinophil# 0.14 X10^3/uL; Eosinophils% 2.7 % (0-5); Hematocrit 41.4 % (40-54); Hemoglobin 14.1 g/dL (13.0-16.5); Lymphocyte # 1.58 X10^3/ul (0.83-4.51); Lymphocyte % 30.3 % (19-41); Mean Corp Hgb Conc 34.1 g/dL (32-36); Mean Corpuscular Hgb 28.1 pg (27.0-32.0); Mean Corpuscular Volume 82.6 fL (80-94); Mean Platelet Vol. 11.1 fl (6.2-12.0); Monocyte# 0.41 X10^3/uL; Monocyte% 7.9 % (0-10); NRBC Flagged by Analyzer 0 % (0-5); Neutrophil # 3.04 X10^3/uL (2.7-7.7); Neutrophil % 58.1 % (47-70); Platelet Count 130 K/mm3 (150-450); RBC Distribution Width CV 13.6 % (11.6-14.6); RBC Distribution Width SD 40.6 fl (35.1-43.9); Red Blood Count 5.01 M/mm3 (4.6-6.2); White Blood Count 5.2 K/mm3 (4.4-11.0)
== END | disposition home or self-care (01) ==
LOC: MTLAB 10:45
PROVIDERS: PCP Family Medicine Geriatric Medicine; Referring Provider Internal Medicine Rheumatology; Visit Provider Internal Medicine Rheumatology
DX: M06.4 Inflammatory polyarthropathy (principal); M21.41 Flat foot [pes planus] (acquired), right foot; Z79.899 Other long term (current) drug therapy
CPT/HCPCS: 36415; 80053; 85025

== ENCOUNTER → 2025-05-01 | Outpatient (CLI) | payer BC, SELFPAY ==
[2025-05-01 09:58] LABS: Hematocrit 42.2 % (40-54); Hemoglobin 14.5 g/dL (13.0-16.5); Immature Granulocytes Count 0.030 X10^3/uL (0.0-0.0); Mean Corp Hgb Conc 34.4 g/dL (32-36); Mean Corpuscular Volume 80.1 fL (80-94); Mean Platelet Vol. 10.0 fl (6.2-12.0); NRBC Flagged by Analyzer 0 % (0-5); Platelet Count 139 K/mm3 (150-450); RBC Distribution Width CV 13.0 % (11.6-14.6); RBC Distribution Width SD 37.2 fl (35.1-43.9); Red Blood Count 5.27 M/mm3 (4.6-6.2); White Blood Count 5.5 K/mm3 (4.4-11.0)
[2025-05-01 14:07] LABS: AST(SGOT) 31 U/L (<=37); Alanine Aminotransfer ALT/SGPT 21 U/L (<=46); Albumin, Serum 4.4 g/dL (3.4-4.8); Alkaline Phosphatase 68 U/L (40-129); Anion Gap 11 (5-15); BUN 17 mg/dL (4-19); BUN/Creat Ratio 15.2 RATIO (10-20); Calcium,Total 9.5 mg/dL (7.6-11.0); Carbon Dioxide 22.6 mmol/L (21.0-32.0); Chloride 102 mmol/L (98-108); Globulin 2.6 g/dL (2.2-4.2); Glucose 104 mg/dL (70-99); Potassium 4.5 mmol/L (3.3-5.1); Vitamin D,25 Hydroxy 52.0 ng/mL (30-100)
== END | disposition home or self-care (01) ==
LOC: LAB 09:35
PROVIDERS: PCP Family Medicine Geriatric Medicine; Referring Provider Family Medicine Geriatric Medicine; Visit Provider Family Medicine Geriatric Medicine
DX: I10 Essential (primary) hypertension (principal); E55.9 Vitamin D deficiency, unspecified
CPT/HCPCS: 36415; 80053; 82306; 84443; 85025

== ENCOUNTER → 2025-09-08 | Outpatient (CLI) | payer BC, SELFPAY ==
[2025-09-08 12:26] LABS: Hematocrit 41.2 % (40-54); Hemoglobin 14.3 g/dL (13.0-16.5); Immature Granulocytes Count 0.030 X10^3/uL (0.0-0.0); Mean Corp Hgb Conc 34.7 g/dL (32-36); Mean Corpuscular Volume 80.5 fL (80-94); Mean Platelet Vol. 10.9 fl (6.2-12.0); NRBC Flagged by Analyzer 0 % (0-5); Platelet Count 133 K/mm3 (150-450); RBC Distribution Width CV 13.3 % (11.6-14.6); RBC Distribution Width SD 38.8 fl (35.1-43.9); Red Blood Count 5.12 M/mm3 (4.6-6.2); White Blood Count 5.2 K/mm3 (4.4-11.0)
[2025-09-08 13:22] LABS: AST(SGOT) 29 U/L (<=37); Alanine Aminotransfer ALT/SGPT 21 U/L (<=46); Albumin, Serum 4.4 g/dL (3.4-4.8); Alkaline Phosphatase 67 U/L (40-129); Anion Gap 11 (5-15); BUN 26 mg/dL (4-19); BUN/Creat Ratio 20.8 RATIO (10-20); Calcium,Total 9.4 mg/dL (7.6-11.0); Carbon Dioxide 24.9 mmol/L (21.0-32.0); Chloride 100 mmol/L (98-108); Globulin 3.0 g/dL (2.2-4.2); Glucose 100 mg/dL (70-99); Potassium 4.4 mmol/L (3.3-5.1)
== END | disposition home or self-care (01) ==
LOC: MTLAB 09:35
PROVIDERS: PCP Family Medicine Geriatric Medicine; Referring Provider Internal Medicine Rheumatology; Visit Provider Internal Medicine Rheumatology
DX: M06.4 Inflammatory polyarthropathy (principal); Z79.899 Other long term (current) drug therapy; M21.41 Flat foot [pes planus] (acquired), right foot
CPT/HCPCS: 36415; 80053; 85025